=== PATIENT | female | born 1940 | race Caucasian/White ===

== ENCOUNTER → 2023-11-21 11:49 | Outpatient (REF) | payer OTHER, SELFPAY | LOC: HWRAD 11:49 | PROVIDERS: ATTENDING PHYSICIAN Nurse Practitioner Family; FAMILY PHYSICIAN Internal Medicine | DX: R05.9 Cough, unspecified (principal); R06.02 Shortness of breath | CPT/HCPCS: 71046 ==

== ENCOUNTER 2023-12-25 17:49 | Inpatient (IN) | payer OTHER, SELFPAY ==
[2023-12-25] VITALS (13 sets, daily range): BP systolic 131–225; BP diastolic 57–132; BMI 27.1; BMI 27.9
[2023-12-25] MEDS: DUONEB 9 ML INH (15:37)
[2023-12-25 15:40] LABS: % Basophils 1.2 % (0-2); % Eosinophils 12.2 % (0-6); % Immature Granulocytes 1.4 % (0-0.5); % Lymphocytes 17.8 % (20.5-51.1); % Monocytes 6.6 % (1.7-9.3); % Neutrophils 60.8 % (42.2-75.2); Absolute Basophils 0.1 10^3/uL (0-0.2); Absolute Eosinophils 1.4 10^3/uL (0-0.7); Absolute Immature Granulocytes 0.2 10^3/uL (0-0.05); Absolute Lymphocytes 2.1 10^3/uL (1.2-3.4); Absolute Monocytes 0.8 10^3/uL (0.1-0.6); Absolute Neutrophils 7.1 10^3/uL (1.4-6.5); Hematocrit 36.2 % (37.0-47.0); Hemoglobin 12.8 g/dL (12.0-16.0); Mean Corp Hgb Conc. 35.4 g/dL (33.0-37.0); Mean Corpuscular Hgb 32.7 pg (27.0-31.0); Mean Corpuscular Volume 92.3 fL (81.0-99.0); Mean Platelet Volume 9.3 fL (7.4-10.4); Nucleated Red Blood Cells % 0 %; Platelet Count 314 10^3/uL (130-400); Red Blood Cell Count 3.92 10^6/uL (4.20-5.40); Red Cell Dist. Width 13.1 % (11.5-14.5); White Blood Cell Count 11.7 10^3/uL (4.8-10.8)
[2023-12-25] MEDS: SOLU-MEDROL PF 125 MG IV (15:41)
[2023-12-25 15:55] LABS: ALT (SGPT) 14 U/L (0-35); AST (SGOT) 26 U/L (14-36); Albumin 4.4 g/dl (3.5-5.0); Alkaline Phosphatase 68 U/L (38-126); Blood Urea Nitrogen 14 mg/dl (7-17); Calcium 9.6 mg/dl (8.4-10.2); Carbon Dioxide 29 mmol/L (22-30); Chloride 98 mmol/L (98-107); Estimated Creatinine Clearance 51 ml/min; Glucose 120 mg/dl (70-99); Potassium 4.2 mmol/L (3.5-5.1); Sodium 135 mmol/L (135-145); Total Protein 7.2 g/dl (6.3-8.2); eGFR > 60.00
[2023-12-25 16:01] LABS: Troponin I < 0.012 ng/ml
--- NOTE | 2023-12-25 16:03 | ED.GENMED ---
History of Present Illness
General
Chief Complaint: Breathing Problem
Time Seen by Provider: 12/25/23 15:33
History of Present Illness
History of Present Illness:
83-year-old female with history of COPD and hypertension presenting to the emergency department for difficulty breathing. Patient reports symptoms started yesterday. However, patient notes ongoing symptoms for the past several months. She notes
in May she was treated for pneumonia, had improvement. However, again had an infection in August. She recently finished a course of steroids a few weeks ago. She denies cough or fever. She is not on any home O2. She denies any associated
chest pain. She denies any known sick contacts. She denies abdominal pain or GI symptoms. She denies any history of intubations. She denies additional acute medical complaints
Phy Exam
Physical Exam
Physical Exam:
General: Acute respiratory
HEENT: protecting airway
Neck: appears supple
CV: Tachycardic
Resp: Increased work of breathing, tachypneic, diffuse wheezing bilaterally
Abd: Soft and non-distended, no tenderness to palpation, normal bowel sounds
Extremities: No deformities, no swelling, no erythema, pulses and sensation intact
Neuro: alert, no focal neurologic deficit
: deferred
Rectal: deferred
Psych: Normal affect
Skin: Intact
Scores
Heart Failure Risk
Heart Failure Risk Score: Not Applicable
Course
Orders/Labs/Results
Orders:
Orders
12/25/23 Dinner
Regular
At Your Request: Full Participation
12/25/23 15:14
Electrocardiogram (*1) Urgent
Reason for Study: Shortness of Breath
EKG- Treatment ONCE
12/25/23 15:21
Portable Chest Xray [CR Chest Portable - 1 View] Urgent
Comment:
Reason For Exam: sob
Reason Study Needs to be Portable: Unable to Transport
12/25/23 15:30
Complete Blood Count/With Diff Urgent
Comprehensive Metabolic Panel Urgent
Troponin I Urgent
12/25/23 15:33
Ipratropium/Albuterol Sulfate [Duoneb] 9 ml INH R NOW STA
MethylPREDNISolone PF [Solu-Medrol Pf] 125 mg IV NOW STA
12/25/23 15:35
Bipap [RESP] Urgent
Patient to use own unit?: No
Inspiratory Pressure (cm H2O): 10
Expiratory Pressure (cm H2O): 5
12/25/23 15:45
COVID-19 Antigen Urgent
Source: Nasal Swab
Influenza A+B Rapid Molecular Urgent
KALI Source: Nasal Swab
Specimen Description:
12/25/23 17:19
Admit/Transfer Patient As Directed
Co-Sign Provider:
Level of Care: Inpatient admission
Assign to:: IMU- Intermediate Care
Physician / Group: jeovanny
Diagnosis: copd exacerbation
Reason for Hospitalization: copd exacerbation
Expected length of stay greater than two midnights?: Yes
ELOS- Estimated Length of Stay in days: 2
I certify the patient meets the requirements for IP care: Yes
12/25/23 17:20
Code Status As Directed
Resuscitation Status: Full Code
12/25/23 18:46
Ipratropium/Albuterol Sulfate [Duoneb] 3 ml INH R Q4HPRN PRN
12/25/23 18:46
Activity As Directed
Activity Level: As Tolerated
Intake/ Output As Directed
Frequency: Per unit guidelines
Vital Signs As Directed
Frequency: Per unit guidelines
Copd Education [RESP] Routine
DX Deep Vein Thrombosis Video Routine
12/25/23 20:00
Heparin 5,000 units SC Q12
Ipratropium/Albuterol Sulfate [Duoneb] 3 ml INH R QID
12/25/23 22:00
Dexamethasone Sod Phosphate [Decadron] 4 mg IV Q8H
12/26/23 04:50
Basic Metabolic Panel IN AM
Complete Blood Count/With Diff IN AM
12/26/23 08:00
Ascorbic Acid [Vitamin C] 500 mg PO DAILY
Aspirin Low Dose EC [Aspir Low (Enteric Coated)] 81 mg PO DAILY
Atorvastatin [Lipitor] 10 mg PO DAILY
Calcium Carbonate [Oscal Cyrus 500] 500 mg PO DAILY
Cholecalciferol (Vitamin D3) [VITAMIN D3 (cholecalciferol)] 50 mcg PO DAILY
Losartan [Cozaar] 100 mg PO DAILY
Abnormal Lab Results
12/25/23
15:30
WBC 11.7 H 10^3/uL
(4.8-10.8)
RBC 3.92 L 10^6/uL
(4.20-5.40)
Hct 36.2 L %
(37.0-47.0)
MCH 32.7 H pg
(27.0-31.0)
Abs Immat Gran (auto) 0.2 H 10^3/uL
(0-0.05)
Absolute Neuts (auto) 7.1 H 10^3/uL
(1.4-6.5)
Absolute Monos (auto) 0.8 H 10^3/uL
(0.1-0.6)
Absolute Eos (auto) 1.4 H 10^3/uL
(0-0.7)
Immature Gran % 1.4 H %
(0-0.5)
Lymphocytes % 17.8 L %
(20.5-51.1)
Eosinophils % 12.2 H %
(0-6)
Glucose 120 H mg/dl
(70-99)
Total Bilirubin 2.0 H mg/dl
(0.2-1.3)
12/25/23 15:30
12/25/23 15:30
Vital Signs
Initial and Last Documented VS:
Initial Vital Signs
Pulse Resp BP Pulse Ox
113 19 211/109 99
12/25/23 15:12 12/25/23 15:12 12/25/23 15:12 12/25/23 15:12
Last Documented Vital Signs
Temp Pulse Resp BP Pulse Ox
97.6 F 109 22 171/88 92
12/28/23 19:41 12/28/23 20:20 12/28/23 19:41 12/28/23 20:20 12/28/23 19:41
MDM/Problems Addressed
MDM/Problems Addressed:
83-year-old female with history of COPD and hypertension presenting for shortness of breath. Vital signs on arrival significant for tachycardia, tachypnea, hypoxia.
On exam, patient in respiratory distress, increased work of breathing, diffuse wheezing. Symptoms appear most consistent with acute COPD exacerbation. Lower suspicion for pneumonia, denies cough or fever. EKG obtained, nonischemic, and patient
without chest pain, with lower suspicion for ACS. PE is a consideration, however again less suspicious given pulmonary examination. Given a work of breathing, respiratory called for BiPAP. Will start DuoNebs and Solu-Medrol.
16:00- Patient did not tolerate BiPAP, very anxious, tore mask off. Patient notes she does not want to be intubated. Understands risks of not being on the BiPAP. Will proceed with nonrebreather.
16:30 - Chest x-ray without acute cardiopulmonary disease. Labs show mild leukocytosis. Patient appears slightly more comfortable on nonrebreather. Plan for admission for acute COPD exacerbation, for continued treatments and respiratory
monitoring.
*EKG
Interpreted by ED Provider?: Yes
EKG Intrepretation Date: 12/25/23
EKG Intrepretation Time: 16:05
Interpretation: normal
Comparison EKG: no comparison EKG present
Heart Rate: 109
Rate: tachycardiac
Rhythm: sinus
[place]: normal axis
Interval: normal interval
QRS Pattern: normal QRS
Ischemia: non-specific ST changes
*Critical Care Note
Total Time (30-74mins, 75-104mins- exclusive of procedures): Not Applicable
ED Attending Note
-
Portions of this chart may have been created with voice recognition software.� Occasional wrong word or��sound alike� substitutions may have occurred due to the inherent limitations of voice recognition software.
Discharge Plan
Departure
Patient Disposition: Admit
Date of Disposition: 12/25/23
Time of Disposition: 16:51
Presentation/result/management discussed w/ accepting MD/DO: Hospitalist
Patient with high blood pressure during this ER visit?: Yes
Condition: Fair
Discharge Problem:
Exacerbation of reactive airway disease, Respiratory difficulty
Interventions
Interventions:
*Risk Screen - Suicide Last Done: 12/25/23 19:57
*General Assessment Last Done: 12/25/23 15:24
*Neglect/Abuse Screening Last Done: 12/25/23 15:24
ED- Fall Risk Assessment Last Done: 12/25/23 18:52
*ED COVID-19 Vaccine History Last Done: 12/25/23 19:57
*Nursing Disposition Last Done: 12/25/23 18:52
ED- Cardiac Assessment Last Done: 12/25/23 15:25
ED- Pulmonary Assessment Last Done: 12/25/23 15:25
Discharge Date and Time
Discharge Date/Time: 12/25/23 18:53
[2023-12-25 16:12] LABS: COVID-19 Antigen Negative (Negative)
--- NOTE | 2023-12-25 17:23 | HPS.HSE ---
Family Physician
-
Family Physician: Aurelia Miramontes
Chief Complaint
-
shortness of breath
History of Present Illness
83-year-old female past medical history of hypertension, hypercholesterolemia presenting for difficulty breathing which started yesterday. Shortness of breath is constant even without exertion. No cough. No fever. No chest pain or tightness. In
May she was treated for pneumonia as well as in August. Patient has had multiple flareups like this to respond to steroids but returned after completion of steroids. thinks that flareups have been more significant since patient
received a flu vaccine last month. Patient does follow with pulmonology here and reportedly did have PFT testing which was unremarkable.
Patient smoked 1 pack of cigarettes for 10 years but she quit several decades ago. No alcohol use.
She denies any abdominal pain or nausea vomiting or diarrhea.
Medical History
Past Medical History
Past Medical History: Reports Other ( hypertension, hypercholesterolemia)
Past Surgical History: Reports None
Social History
Tobacco: Former Smoker
Alcohol: None
Drug: None
Family History
Family History: Not pertinent
Allergies / Home Medications
Allergies reflects when Allergies were last updated in [facility].
Home Medications with original date entered in [facility]
Allergy/Medication List:
Allergies
Allergy/AdvReac Type Severity Reaction Status Date / Time
No Known Allergies Allergy Unverified 12/25/23 15:13
Home Medications
albuterol sulfate 2.5 mg/3 mL (0.083 %) solution for nebulization 2.5 mg inhalation R Q6HPRN PRN sob 12/25/23
albuterol sulfate 90 mcg/actuation aerosol inhaler 2 puff inhalation R Q6HPRN PRN sob 12/25/23
ascorbic acid (vitamin C) 500 mg tablet (Vitamin C) 500 mg PO DAILY 12/25/23
aspirin 81 mg tablet,delayed release 81 mg PO DAILY 12/25/23
atorvastatin 10 mg tablet 10 mg PO DAILY 12/25/23
calcium carbonate (Calcium 600) 600 mg PO DAILY 12/25/23
cholecalciferol (vitamin D3) 50 mcg (2,000 unit) tablet (Vitamin D3) 50 mcg PO DAILY 12/25/23
losartan 100 mg tablet 100 mg PO DAILY 12/25/23
Review of Systems
-
History Source: Patient
A 12 point ROS was completed and negative except as noted: Yes
Constitutional: Reports No Symptoms
EENT: Reports No Symptoms
Respiratory: Reports See HPI
Cardiac: Reports No Symptoms
Abdomen/GI: Reports No Symptoms
: Reports No Symptoms
Musculoskeletal: Reports No Symptoms
Skin: Reports No Symptoms
Neurological: Reports No Symptoms
Endocrine: Reports No Symptoms
Hematologic/Lymphatic: Reports No Symptoms
Psych: Reports No Symptoms
Physical Exam
Vital Signs
Vital Signs
Temp Pulse Resp BP Pulse Ox
98.1 F 107 25 147/66 96
12/25/23 15:22 12/25/23 17:01 12/25/23 17:01 12/25/23 17:01 12/25/23 17:01
Physical Exam
General: Well Developed, Well Nourished and No Apparent Distress
HEENT: NormoCephalic, Moist mucous membranes and Atraumatic
Respiratory: Wheezes
Cardiac: S1/S2 and Regular Rhythm; No Murmur or Rub
GI: Soft, Non Tender, Non Distended and Normal Bowel Sounds; No Organomegaly
Rectal: Deferred by Provider
Musculoskeletal: No Clubbing, No Cyanosis and No Edema
Skin: No Rash
Neuro: Nonfocal/grossly intact
Laboratory Results
-
12/25/23 15:30
12/25/23 15:30
Laboratory Results
Total Bilirubin 2.0 mg/dl (0.2-1.3) H 12/25/23 15:30
AST 26 U/L (14-36) 12/25/23 15:30
ALT 14 U/L (0-35) 12/25/23 15:30
Alkaline Phosphatase 68 U/L (38-126) 12/25/23 15:30
Troponin I < 0.012 ng/ml 12/25/23 15:30
Data Reviewed
-
Lab Data: Labs Reviewed by me
Old Records: Reviewed
Impression/Plan
-
IMPRESSION:
PLAN:
# Recurrent asthma/COPD exacerbation
-Bilateral wheezing on examination
-Chest x-ray shows no acute abnormality
-DuoNebs every 6 hours
-Dexamethasone 4 mg every 8
-Patient refused BiPAP
-Likely needs long-acting inhaler
-Pulmonary consulted
# Hypertensive urgency
#Essential hypertension
-Blood pressure spontaneously improved
-Continue losartan
-Continue prophylactic aspirin
Hyperlipidemia
-Continue statin
Former smoker
Full code
DVT prophylaxis�heparin
Regular diet
--- NOTE | 2023-12-25 18:59 | PTCARENOTE ---
Received pt from ED RN. Scooted onto stretcher. Placed on monitor equipment. Pt visibly dyspneic at rest and tachypneic but reports feeling much improved. Sating mid 90's on 6L NC. at bedside. Report to receiving RN.
[2023-12-25] MEDS: HEPARIN 5000 UNITS SC (20:12)
--- NOTE | 2023-12-25 20:30 | PTCARENOTE ---
Received pt from [facility]asia RN. Pt is AAOx2 (time), JACKSON, forgetful. Sinus tach/NSR on the monitor. On 6L NC O2 sat 95%, lungs coarse/rhonchi, tachypneic. Stress incont/BSCx1. Mouth care provided. Pt is laying comfortable in bed with call cabrera in reach.
[2023-12-25] MEDS: DECADRON 4 MG IV (21:44)
[2023-12-25] MEDS: XOPENEX 1.25 MG INHALANT SOLUTION INH (23:15)
[2023-12-26] VITALS (12 sets, daily range): BP systolic 140–184; BP diastolic 57–112
--- NOTE | 2023-12-26 00:11 | PTCARENOTE ---
GOMEZ Barber notified about pt BP 184/96, no new orders.
[2023-12-26] MEDS: XOPENEX 1.25 MG INHALANT SOLUTION INH ×4 (03:38→18:06)
[2023-12-26] MEDS: DECADRON 4 MG IV ×3 (05:00→22:00)
[2023-12-26 05:18] LABS: % Basophils 0.1 % (0-2); % Immature Granulocytes 0.7 % (0-0.5); % Lymphocytes 18.8 % (20.5-51.1); % Monocytes 1.2 % (1.7-9.3); % Neutrophils 79.2 % (42.2-75.2); Absolute Immature Granulocytes 0.1 10^3/uL (0-0.05); Absolute Lymphocytes 1.4 10^3/uL (1.2-3.4); Absolute Monocytes 0.1 10^3/uL (0.1-0.6); Absolute Neutrophils 5.8 10^3/uL (1.4-6.5); Hematocrit 36.6 % (37.0-47.0); Hemoglobin 12.4 g/dL (12.0-16.0); Mean Corp Hgb Conc. 33.9 g/dL (33.0-37.0); Mean Corpuscular Hgb 30.5 pg (27.0-31.0); Mean Corpuscular Volume 89.9 fL (81.0-99.0); Mean Platelet Volume 9.2 fL (7.4-10.4); Nucleated Red Blood Cells % 0 %; Platelet Count 324 10^3/uL (130-400); Red Blood Cell Count 4.07 10^6/uL (4.20-5.40); Red Cell Dist. Width 13.1 % (11.5-14.5); White Blood Cell Count 7.4 10^3/uL (4.8-10.8)
[2023-12-26 05:43] LABS: Blood Urea Nitrogen 19 mg/dl (7-17); Calcium 9.7 mg/dl (8.4-10.2); Carbon Dioxide 23 mmol/L (22-30); Chloride 100 mmol/L (98-107); Estimated Creatinine Clearance 57 ml/min; Glucose 159 mg/dl (70-99); Potassium 4.4 mmol/L (3.5-5.1); Sodium 136 mmol/L (135-145); eGFR > 60.00
--- NOTE | 2023-12-26 06:56 | RESPNOTE ---
12/25/23 15:[address] patient on BIPAP settings as ordered. Patient pulled off mask after two minutes and stated she couldn't breathe and refused to wear despite coaching. RN aware, present in room.
[2023-12-26] MEDS: ASPIR LOW (ENTERIC COATED) 81 MG PO (08:06)
[2023-12-26] MEDS: HEPARIN 5000 UNITS SC ×3 (08:06→23:22)
[2023-12-26] MEDS: OSCAL CAL 500 500 MG PO (08:06)
[2023-12-26] MEDS: VITAMIN D3 (cholecalciferol) 50 MCG PO (08:06)
[2023-12-26] MEDS: VITAMIN C 500 MG PO (08:06)
[2023-12-26] MEDS: LIPITOR 10 MG PO (08:06)
[2023-12-26] MEDS: COZAAR 100 MG PO (08:06)
--- NOTE | 2023-12-26 09:30 | CON.PUL ---
Addendum entered and electronically signed by Clement Noriega MD 12/26/23 12:37:
Additional history obtained from as patient is not a good historian. 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 Patient
family as well as [place] 3 times since May with multiple courses of antibiotics and steroids. Patient has noted to be hypoxic in the outpatient setting, 84% after being seen by pulmonary 12/24, sent to ED at that time.
Rev with at length by phone
Original Note:
Consultation
Consultation Request
Date/Time Consultation Requested: 12/25
Date/Time Consultation Performed: 12/25
Reason for Consultation: Shortness of breath
Medical History
-
History of Present Illness:
History obtained from the patient and reviewing the chart. Unfortunate, patient is not a very good historian. She has no recollection or memory of prior medical details. Historical details primary obtained from ER records. 83-year-old female
with history of COPD, presents with increasing shortness of breath which appears to be subacute to chronic over the past few months. Patient cannot recall last time she saw a physician. Patient apparently has a history of pneumonia treated in
May 2023 and in August 2023. She appears to have been on and off steroids over the past few months, but patient cannot confirm this. She admits to short of breath with steps, does not have oxygen therapy at home. Denies any falls, syncope,
fevers, hemoptysis, weight changes. Upon arrival to [facility], pulse 113, breathing at 19, blood pressure 211/109, 99%. Per ED records, patient with diffuse wheezing and increased work of breathing. Chest x-ray without acute findings.
Patient was given nebulized therapy and steroids. It was unable to tolerate BiPAP in the ED. Placed on nonrebreather admitted for COPD exacerbation. We are asked to help from pulmonary standpoint
.
PMH: History of COPD, hypertension, hyperlipidemia. Patient not a good historian
Past Medical History
Past Medical History: None (See above)
Past Surgical History: None (See above)
Social History
Tobacco: Former Smoker (60+ pack year, quit 2021, started age 17. Patient cannot recall, she used to smoke a day)
Alcohol: None
Drug: None
Personal:
Living: With Family (Lives with , has a dog)
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
Family History
Family History: Other (Children are healthy. Family history negative for blood clots, lung cancer)
Allergies / Home Medications
Allergies
Allergy/AdvReac Type Severity Reaction Status Date / Time
No Known Allergies Allergy Unverified 12/25/23 15:13
Home Medications
�Medication �Instructions �Recorded �Confirmed �Last Taken �Type
albuterol sulfate 2.5 mg/3 mL 2.5 mg inhalation R Q6HPRN PRN sob 12/25/23 12/25/23 12/25/23 History
(0.083 %) solution for nebulization
albuterol sulfate 90 mcg/actuation 2 puff inhalation R Q6HPRN PRN sob 12/25/23 12/25/23 Unknown History
aerosol inhaler
ascorbic acid (vitamin C) 500 mg 500 mg PO DAILY 12/25/23 12/25/23 12/24/23 History
tablet (Vitamin C)
aspirin 81 mg tablet,delayed 81 mg PO DAILY 12/25/23 12/25/23 12/24/23 History
release
atorvastatin 10 mg tablet 10 mg PO DAILY 12/25/23 12/25/23 12/24/23 History
calcium carbonate (Calcium 600) 600 mg PO DAILY 12/25/23 12/25/23 12/24/23 History
cholecalciferol (vitamin D3) 50 50 mcg PO DAILY 12/25/23 12/25/23 12/24/23 History
mcg (2,000 unit) tablet (Vitamin
D3)
losartan 100 mg tablet 100 mg PO DAILY 12/25/23 12/25/23 12/24/23 History
Review of Systems
-
All other systems: Negative unless noted
Vitals / Labs / Diagnostic Testing
Vital Signs
Temp Pulse Resp BP Pulse Ox
97.9 F 97 20 165/95 91
12/26/23 07:44 12/26/23 07:44 12/26/23 07:44 12/26/23 07:44 12/26/23 08:35
Lab Data
12/26/23 04:50
12/26/23 04:50
Microbiology
12/25/23 15:45 Nasal Swab Influenza Types A & B (CARITO) - Final
Negative for Influenza A & B, NAAT
Negative results must be combined with clinical observations
and patient history.
Nucleic Acid Amplification test (NAAT)performed on the
[employer] platform.
Diagnostic Testing:
Physical Exam
-
HEENT: Normocephalic and Anicteric
Cardiovascular: S1/S2, Irregular Rhythm, Murmur (n), Rub (n) and Peripheral Edema (tr)
Respiratory: Wheeze (Diffuse), Rales (n), Rhonchi (n) and Non-Labored Respirations
GI: Soft, Non Distended and Non Tender
Neurology: Awake, Alert, Oriented and No Motor Deficits (Able to sit up without assistance)
Skin: Good Color and Other (No clubbing, no cyanosis)
General: Comfortable
Assessment
-
63-year-old female with history of COPD, possible asthma, smoking history with recurrent flareups of COPD/asthma over the past 6 months requiring antibiotics/steroids, now presents with acute COPD exacerbation with diffuse wheezing and hypertensive
urgency. We are asked to help from pulmonary standpoint. Of note patient is an extremely poor historian
Acute COPD exacerbation
Hypertensive urgency
Hyperglycemia
Questionable right lower lobe/right middle lobe infiltrate (my review)
Conditions present prior to admission
History of hypertension
Hyperlipidemia
60+ pack-year history of smoking quit 2021
Plan/recommendations
At this time, patient appears to be comfortable without use of accessory muscles
Unfortunate, she is a poor historian
ED records suggest diffuse wheezing, requiring nonrebreather, failed BiPAP
ED records also suggest significant work of breathing, use of accessory muscles.
Presently she is comfortable, conversant
Moving forward
Continue with management for suspected COPD exacerbation
Patient likely with history of COPD given smoking history
There may be a mild right lower lobe, right middle lobe infiltrate although I cannot confirm this
Will add doxycycline with COPD exacerbation
Continue nebulized therapy. Add ipratropium
Hypertensive urgency noted
Continue with management per primary service. Blood pressure improved at this time
She will need monitoring of oxygen requirements as she may require home oxygen
Patient states it is likely been more than 10 years since she saw a physician
DVT prophylaxis: Remains on subcutaneous heparin. Increased to every 8 hours
GI prophylaxis: Will add while on steroids
Will follow
--- NOTE | 2023-12-26 10:20 | CM ---
Patient seen at bedside with physician. Patient states that she lives with . Patient does not have PCP at this time, states it has been years since she had seen one. Patient also states that she does not have a pulmonary physician. Patient is
new to . CM will return to complete assessment as Pulmonary Doctor here to assess patient. CM will continue to follow for discharge planning needs.
Plan; home with family watch for VN vs SNF
[2023-12-26] MEDS: ATROVENT NEBULES 0.5 MG INH ×3 (11:04→18:06)
[2023-12-26] MEDS: APRESOLINE 5 MG PO ×2 (12:56→20:33)
[2023-12-26] MEDS: ZITHROMAX 250 MG PO (12:58)
--- NOTE | 2023-12-26 15:48 | W.PN.HOSP.TC ---
Addendum entered and electronically signed by Mandi Mora MD 12/26/23 18:11:
I saw and evaluated the patient independently. I reviewed the resident�s note and agree with findings and plan as documented by Dr. Shi.
GENERAL: well developed, well nourished, female in no apparent distress
HEENT: NC/AT-- O2 NC in place
HEART: regular rate and rhythm, +S1, +S2
LUNGS :coarse rhonchi with wheezing bilaterally all lung michel
ABDOM: soft, nontender, nondistended, + bowel sounds
EXT: no cyanosis, clubbing, or edema
NEUROLOGIC: grossly intact
Recurrent asthma/COPD exacerbation--cont nebs/steroids--apprec pulm--would start zithomax --follow EKG for QTc monitoring--agree with consideration of advair, symbicort etc
Essential hypertension--Continue losartan--Continue prophylactic aspirin
Hyperlipidemia--Continue statin
Sinus tachycardia--possibly due to duonebs and SOB
DVT prophylaxis: Remains on subcutaneous heparin. Increased to every 8 hours
Code status --Full code
Original Note:
Today's Communication/Plan
-
Continue with management for suspected COPD exacerbation. Continue nebulized therapy and add ipratropium. Continue to monitor oxygen requirements because the patient will possibly need home oxygen.
Assessment / Plan
Assessment / Plan
- Recurrent asthma/COPD exacerbation: Monitoring - Unresolved
DuoNebs every 6 hours
Dexamethasone 4 mg every 8 hours
Patient would benefit from BiPAP but unfortunately refused
Patient will benefit from a long-acting inhaler
Pulmonology consult - Pulmonology consult suspected COPD given the history of smoking. They suggested adding doxycycline due to COPD exacerbation. They recommended that nebulizer to be continued and add ipratropium. They also stated that she
will need monitoring of oxygen requirements as there is a possibility she may require home oxygen. Pulmonology will continue to follow.
- Essential hypertension
Continue losartan
Continue prophylactic aspirin
- Hyperlipidemia
Continue statin
-Sinus tachycardia: Monitoring
Pulse is consistently elevated above 100
Twelve-lead electrocardiogram showed sinus tachycardia, right atrial enlargement, inferior infarct with undetermined age.
DVT prophylaxis: Remains on subcutaneous heparin. Increased to every 8 hours
Full code
Regular diet
Anticipated Discharge: > 48 hours
Subjective/Interval History
-
Date of Service: December 26, 2023
Met with patient at the bedside. Overall, she is in a calm and pleasant mood but seems forgetful of past events. When asked if she is ever seen a zookeeper or 'lung doctor' the patient was unable to confirm if she is ever seen a zookeeper.
She states that she smoked for many years but then stopped and her breathing has been fine for the most part. Prior records shows multiple hospital admissions for hypoxia and similar circumstances. Patient does not recall any of this. Patient
unaware of her obstructive sleep apnea and did not know what COPD was.
Objective Data
-
Labs:
Laboratory Results
12/26/23
04:50
WBC 7.4
Hgb 12.4
Hct 36.6 L
Plt Count 324
Sodium 136
Potassium 4.4
Chloride 100
Carbon Dioxide 23
BUN 19 H
Creatinine 0.8
Glucose 159 H
Calcium 9.7
Vital Signs:
Vital Signs
Temp Pulse Resp BP Pulse Ox
97.8 F 110 23 147/57 95
12/26/23 12:28 12/26/23 15:15 12/26/23 15:15 12/26/23 14:00 12/26/23 15:15
I&O
12/25/23 12/26/23 12/27/23
06:59 06:59 06:59
Intake Total 200 / 200
Balance 200 / 200
Review of Systems
-
History Source: Patient
Constitutional: Reports No Symptoms
EENT: Reports No Symptoms Reported
Respiratory: Reports Cough, Trouble Breathing and Wheezing
Cardiac: Reports No Symptoms
Abdomen/GI: Reports No Symptoms
Breast: Reports No Symptoms
Genitourinary: Reports No Symptoms
Musculoskeletal: Reports No Symptoms
Skin: Reports No Symptoms
Neuro: Reports No Symptoms
Endocrine: Reports No Symptoms
Hematologic / Lymphatic: Reports No Symptoms
Allergy / Immunology: Reports No Symptoms
Physical Exam
-
General: Well Developed
HEENT: Normocephalic, Atraumatic and Moist Mucous Membranes
Respiratory: Wheezes, Rales, Rhonchi and Non Labored Respirations
Cardiac: S1/S2, Irregular Rhythm and Murmur
Breast: Deferred by me
GI: Soft, Nontender, Nondistended and Normal Bowel Sounds
Rectal: Deferred by Provider
Genito-urinary: Deferred by me
Musculoskeletal: No Clubbing and No Cyanosis
Skin: Warm and Dry
Neuro: Nonfocal/Grossly Intact
Psych: Calm
--- NOTE | 2023-12-26 18:05 | PTCARENOTE ---
Received pt from IMU. Report from Carmen RODRIGUEZ. Pt awake, alert and oriented x2, very forgetful,poor historian. Pt assisted from wheelchair to bed, visibly short of breath with activity, pulse ox 93% on 3L. Respiratory into give treatment, work of
breathing much improved after nebulizer, pt appears more comfortable pulse ox 94-95% on 3L. Pt Sinus Tach on tele. Bp slightly elevated, PRN meds due within the hour, will pass onto oncoming shift. Pt oriented to room, call cabrera within reach, HOB
elevated, family at bedside, bed alarm in place for safety, plan of care continues.
--- NOTE | 2023-12-26 18:20 | PTCARENOTE ---
PT for downgrade to tele. Belongings collected from room. Transferred to [facility] via wheelchair.
[2023-12-26] MEDS: PEPCID 20 MG PO (20:32)
[2023-12-27] VITALS (8 sets, daily range): BP systolic 151–175; BP diastolic 80–117
--- NOTE | 2023-12-27 02:58 | DOWNTIME ---
There was a [employer] Client Member Service Representative Downtime on 12/27/2023 from 0100 to 12/27/2023 at 0255. Downtime documentation of patient's care, including medication administrations, has been reconciled in the electronic record per guidelines. Refer to the
patient's paper chart under the miscellaneous tab to see printed paper medication records and downtime forms.
[2023-12-27] MEDS: APRESOLINE 5 MG PO ×2 (03:53→16:16)
[2023-12-27] MEDS: DECADRON 4 MG IV ×3 (05:41→21:12)
[2023-12-27 07:27] LABS: Hematocrit 34.8 % (37.0-47.0); Hemoglobin 11.9 g/dL (12.0-16.0); Mean Corp Hgb Conc. 34.2 g/dL (33.0-37.0); Mean Corpuscular Hgb 31.2 pg (27.0-31.0); Mean Corpuscular Volume 91.3 fL (81.0-99.0); Mean Platelet Volume 9.7 fL (7.4-10.4); Platelet Count 361 10^3/uL (130-400); Red Blood Cell Count 3.81 10^6/uL (4.20-5.40); Red Cell Dist. Width 13.2 % (11.5-14.5); White Blood Cell Count 16.9 10^3/uL (4.8-10.8)
[2023-12-27 07:34] LABS: ALT (SGPT) 15 U/L (0-35); AST (SGOT) 25 U/L (14-36); Alkaline Phosphatase 62 U/L (38-126); Blood Urea Nitrogen 31 mg/dl (7-17); Calcium 9.8 mg/dl (8.4-10.2); Carbon Dioxide 26 mmol/L (22-30); Chloride 99 mmol/L (98-107); Estimated Creatinine Clearance 46 ml/min; Glucose 121 mg/dl (70-99); Potassium 4.3 mmol/L (3.5-5.1); Sodium 135 mmol/L (135-145); Total Bilirubin 0.9 mg/dl (0.2-1.3); eGFR 56.25
[2023-12-27] MEDS: XOPENEX 1.25 MG INHALANT SOLUTION INH ×3 (08:11→19:26)
[2023-12-27] MEDS: ATROVENT NEBULES 0.5 MG INH ×4 (08:11→19:26)
[2023-12-27] MEDS: HEPARIN 5000 UNITS SC ×2 (08:26→16:06)
[2023-12-27] MEDS: COZAAR 100 MG PO (08:27)
[2023-12-27] MEDS: ASPIR LOW (ENTERIC COATED) 81 MG PO (08:27)
[2023-12-27] MEDS: VITAMIN D3 (cholecalciferol) 50 MCG PO (08:27)
[2023-12-27] MEDS: ZITHROMAX 250 MG PO (08:27)
[2023-12-27] MEDS: VITAMIN C 500 MG PO (08:27)
[2023-12-27] MEDS: OSCAL CAL 500 500 MG PO (08:27)
[2023-12-27] MEDS: PEPCID 20 MG PO ×2 (08:27→20:13)
[2023-12-27] MEDS: LIPITOR 10 MG PO (08:27)
--- NOTE | 2023-12-27 08:50 | PTOTSP ---
Speech Language Pathology
VIDEOFLUOROSCOPIC SWALLOWING EXAMINATION (VSE) completed. Overall, pt with mild pharyngeal dysphagia with trace penetration to the level of the vocal folds with consecutive sips of thin liquids via straw, which cleared with a cued cough. No other
penetration/aspiration noted. Only trace base of tongue residue noted throughout study.
Recommend:
(1) Continue regular solids/thin liquids
(2) Aspiration precautions: single sips only
(3) Meds whole with liquid if able to take a single sip. Otherwise, whole in puree
(4) COOLER SERVICER to sign off. Please reconsult as indicated
--- NOTE | 2023-12-27 13:56 | PN.CDI ---
CDI
- -
CDI:
Physician Documentation Request
Admit Date: 12/25/23 17:49
Dear Doctor Yuridia,
Please review the following and provide your response in the progress notes.
Clinical Indicators:
ED, 12/24
#...presenting to the emergency department for difficulty breathing.
#Resp: Increased work of breathing, tachypneic, diffuse wheezing bilaterally
#On exam, patient in respiratory distress, increased work of breathing, diffuse wheezing.
#Given a work of breathing, respiratory called for BiPAP.
#16:00- Patient did not tolerate BiPAP, very anxious, tore mask off.
#...Will proceed with nonrebreather.
Pulmonary consult, 12/25
ED records suggest diffuse wheezing, requiring nonrebreather, failed BiPAP
ED records also suggest significant work of breathing, use of accessory muscles.
Selected Entries
12/25/23
15:22 12/25/23
20:00 12/25/23
20:44
SaO2 100 95 96
Nasal Cannula flow liters per minute 8 6 5
12/25/23
22:42 12/26/23
11:07 12/26/23
12:28
SaO2 96 97 95
Nasal Cannula flow liters per minute 5 6 5
Based on the above, please clarify which of the following accurately represents the patient's respiratory status :
Acute respiratory failure
COPD exacerbation only
Hypoxia
Other(please specify)
Additional information for Respiratory Failure:
Recognized criteria for Respiratory Failure (Source: [facility] Hospitalist Apr 2013)
Symptoms Please indicate type if known
1. Tachypnea, SOB, dyspnea Hypoxic
2. Use of accessory muscles Hypercapnic
3. Pallor or cyanosis Hypoxic and Hypercapnic
4. Anxiety or restlessness
5. Unable to speak in full sentences
Supplemental O2 of > 40% (5LPM) Intubation is not required
Use of terms such as suspected, likely, concern for, or probable (associated with a specific diagnosis that is being evaluated, monitored, or treated as if it exists) are acceptable and can be coded in the inpatient setting, when documented at the
time of discharge.
Thank you,
Mandi Ramos RN BSN CCDS
CDI Specialist
please contact via tiger text
Please use your independent medical judgment in providing your response.
--- NOTE | 2023-12-27 14:10 | PN.CDI ---
CDI
- -
CDI:
Physician Documentation Request
Admit Date: 12/25/23 17:49
Dear Doctor Yuridia,
Please review the following and provide your response in the progress notes.
Clinical Indicators:
Pulmonary consult, 12/25
#There may be a mild right lower lobe, right middle lobe infiltrate
#....although I cannot confirm this
#Will add doxycycline with COPD exacerbation
PN, 12/25
Recurrent asthma/COPD exacerbation--cont nebs/steroids--apprec pulm
#...--would start zithomax --follow EKG for QTc monitoring
#...--agree with consideration of advair, symbicort etc
#Pulmonology consult suspected COPD given the history of smoking.
#...They suggested adding doxycycline due to COPD exacerbation.
Based on the above, please clarify in the progress notes, the appropriate diagnosis, if significant, that supports the above abnormalities and additional evaluation, monitoring and/or treatment rendered:
Acute bronchitis
Pneumonia
Other(please specify)
Use of terms such as suspected, likely, concern for, or probable (associated with a specific diagnosis that is being evaluated, monitored, or treated as if it exists) are acceptable and can be coded in the inpatient setting, when documented at the
time of discharge.
Thank you,
Mandi Ramos RN BSN CCDS
CDI Specialist
please contact via tiger text
Please use your independent medical judgment in providing your response.
--- NOTE | 2023-12-27 14:11 | W.PN.PUL3 ---
Today's Communication / Plan
-
Continue steroids
Check CT chest with high res images in am
change macrolide to doxy
aspiration prec
GERD rx
Assessment
-
63-year-old female with history of COPD, possible asthma, smoking history with recurrent flareups of COPD/asthma over the past 6 months requiring antibiotics/steroids, now presents with acute COPD exacerbation with diffuse wheezing and hypertensive
urgency. We are asked to help from pulmonary standpoint. Of note patient is an extremely poor historian
Acute COPD exacerbation
Hypertensive urgency
Hyperglycemia
Questionable right lower lobe/right middle lobe infiltrate (my review)
Hx of ANCA vasculitis
Treated with Rituxan in the past last dose February 2019
Follows rheumatology
CANCA vasculitis, eosinophils per muscle biopsy for myositis
Conditions present prior to admission
History of hypertension
Hyperlipidemia
60+ pack-year history of smoking quit 2021
Plan/recommendations
At this time, patient appears to be comfortable without use of accessory muscles
Unfortunate, she is a poor historian
ED records suggest diffuse wheezing, requiring nonrebreather, failed BiPAP
ED records also suggest significant work of breathing, use of accessory muscles.
Chest exam appears to be improved
confirmed improvement in respiratory status
Swallowing evaluation confirms risk for aspiration
Moving forward
Patient appears to have a steroid responsive process over the past 6 months
Patient likely with history of COPD given smoking history
However, given history of vasculits, wonder about an interstitial process
There may be a mild right lower lobe, right middle lobe infiltrate although I cannot confirm this
Continue with Zithromax 250 mg a day
Will add doxycycline with COPD exacerbation
Continue nebulized therapy. Continue ipratropium
Hypertensive urgency noted
Continue with management per primary service. Blood pressure improved at this time
Check urinalysis with micro, rule out hematuria
Given history of vasculitis, wonder if there may be an interstitial process.
Patient had outpatient CT chest 10/12/2023 at [place]. Per report, resolution of left upper lobe atelectasis and biapical opacities.
I wonder if there is a steroid responsive interstitial process. She will need closer monitoring both radiographically and clinically and consideration for nonsteroid therapy
DVT prophylaxis: Remains on subcutaneous heparin. Increased to every 8 hours
GI prophylaxis: continue while on steroids
updated at bedside at length
Will follow
Subjective Data
-
Date of Service:
Date of Service: December 27, 2023
Subjective:
Patient difficult historian. at bedside. Patient does appear to be somewhat improved. confirmed this. Patient denies chest pain. Has not been ambulating
Objective Data
Data Reviewed
Vital Signs / I&O / Oxygen:
Vital Signs
Temp Pulse Resp BP Pulse Ox
97.8 F 114 22 158/80 95
12/27/23 11:06 12/27/23 14:00 12/27/23 11:06 12/27/23 14:00 12/27/23 14:01
Intake and Output
12/26/23 12/27/23 12/28/23
06:59 06:59 06:59
Intake Total 200 / 200 240 / 240
Balance 200 / 200 240 / 240
SaO2 95
Nasal Cannula flow liters per 2
minute
Physical Exam
General: Comfortable
HEENT: Normocephalic and Anicteric
Cardiovascular: S1-S2, Regular Rhythm, Murmur (n), Rub (n) and Peripheral Edema (Trace)
Respiratory: Wheeze (Few scattered wheezes), Crackles (n), Rhonchi (n) and Non-Labored Respirations
GI: Soft, Non Distended and Non Tender
Neurology: Awake, Alert and No Motor Deficits
Labs/Micro/Reports
Lab Data
12/27/23 05:46
12/27/23 05:46
Microbiology
12/25/23 15:45 Nasal Swab Influenza Types A & B (CARITO) - Final
Negative for Influenza A & B, NAAT
Negative results must be combined with clinical observations
and patient history.
Nucleic Acid Amplification test (NAAT)performed on the
[employer] platform.
--- NOTE | 2023-12-27 15:54 | CM ---
Patient seen at bedside with . Patient states that the home is 3 story home with no prior VN. Patient PCP Dr. Miramontes and she uses the [facility]. Patient has a walker at home but is primary caregiver and is very much
against SNF placement. CM will continue to follow for discharge planning needs.
Plan; home with VN vs home with no needs.
--- NOTE | 2023-12-27 17:26 | W.PN.HOSP.TC ---
Addendum entered and electronically signed by Mandi Mora MD 12/27/23 18:40:
I saw and evaluated the patient independently. I reviewed the resident�s note and agree with findings and plan as documented by Dr. Shi.
GENERAL: well developed, well nourished, female in no apparent distress
HEENT: NC/AT-- O2 NC in place
HEART: regular rate and rhythm, +S1, +S2
LUNGS :coarse rhonchi with wheezing bilaterally all lung michel, improved overnight
ABDOM: soft, nontender, nondistended, + bowel sounds
EXT: no cyanosis, clubbing, or edema
NEUROLOGIC: grossly intact
acute hypoxemic resp failure due to Recurrent asthma/COPD exacerbation--cont nebs/steroids--apprec pulm-- started zithromax to cover for bronchitis but QTC long so changed to doxy--agree with consideration of advair, symbicort etc
TME vs mild cognitive impairment/dementia--multiple reasons...hypoxia, steroids, ANCA vasculitis--possible UTI--check UA with reflex to C&S--for CT chest (by pulm ) in AM
Essential hypertension--Continue losartan--Continue prophylactic aspirin
Hyperlipidemia--Continue statin
Sinus tachycardia--possibly due to duonebs and SOB
DVT prophylaxis: Remains on subcutaneous heparin. Increased to every 8 hours
Code status --Full code
Original Note:
Today's Communication/Plan
-
Doxycycline added to medication regimen and azithromycin discontinued due to QT prolongation. Amlodipine 5 mg p.o. at nighttime added for hypertension. Hydralazine 5 mg p.o. given every 4 hours as needed added for breakthrough hypertension. We
will try to wean the patient's oxygen nasal cannula down to 2 L if possible.
Assessment / Plan
Assessment / Plan
- Acute COPD exacerbation: Monitoring - Unresolved
DuoNebs every 6 hours
Dexamethasone 4 mg every 8 hours
Patient would benefit from BiPAP but unfortunately refused
Patient will benefit from a long-acting inhaler
Patient tested negative for influenza types a and B
Pulmonology consult - Pulmonology consult suspected COPD given the history of smoking. They recommended that nebulizer to be continued and continue ipratropium. They also stated that she will need monitoring of oxygen requirements as there is a
possibility she may require home oxygen. Patient was switched from azithromycin to doxycycline due to concerns of QT prolongation. They also recommended monitoring both radiographically and clinically as there is consideration for nonsteroid
therapy... COPD exacerbation may be a consequence of a steroid responsive interstitial process.
Barium swallow ordered to rule out possibility of aspiration pneumonia risk. Study conducted showed no fluoroscopic evidence of airway aspiration.
Patient currently on 3 L nasal cannula with an SaO2 of 94
- Essential hypertension: Monitoring - Unresolved
Continue losartan
Continue prophylactic aspirin
Hydralazine 5 mg p.o. every 4 hours as needed added
Amlodipine 5 mg added nightly
- Hyperlipidemia: Stable
Continue statin
-Sinus tachycardia: Monitoring
Pulse is consistently elevated above 100 -is 111 on 12/26
Twelve-lead electrocardiogram showed sinus tachycardia, right atrial enlargement, inferior infarct with undetermined age.
- Hyperglycemia: Monitoring
Patient's glucose level is stable at around 121.
Continue to monitor
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
Treated prior with Rituxan in the past - last dose was given February 2019
Follows with outpatient rheumatology
C-ANCA vasculitis, eosinophils per muscle biopsy for myositis
- Overweight:
Patient's BMI is 27.9 which categorized the patient is overweight.
She has been counseled in regards to improved dietary habits and we will consider dietary consult.
DVT prophylaxis: Remains on subcutaneous heparin. Increased to every 8 hours
Full code
Regular diet
Anticipated Discharge: > 48 hours
Subjective/Interval History
-
Date of Service: December 27, 2023
Met with the patient at the bedside. She states that she is feeling better today and is able to breathe slightly better. She has noticed that when she takes deep breaths she no longer feels a strong need to cough. She is smiling and jovial in
discussion.
Objective Data
-
Labs:
Laboratory Results
12/27/23
05:46
WBC 16.9 H
Hgb 11.9 L
Hct 34.8 L
Plt Count 361
Sodium 135
Potassium 4.3
Chloride 99
Carbon Dioxide 26
BUN 31 H
Creatinine 1.0
Glucose 121 H
Calcium 9.8
Total Bilirubin 0.9 D
AST 25
ALT 15
Alkaline Phosphatase 62
Vital Signs:
Vital Signs
Temp Pulse Resp BP Pulse Ox
97.6 F 111 24 161/91 92
12/27/23 15:41 12/27/23 16:16 12/27/23 15:41 12/27/23 16:16 12/27/23 15:41
I&O
12/26/23 12/27/23 12/28/23
06:59 06:59 06:59
Intake Total 200 / 200 240 / 240
Balance 200 / 200 240 / 240
Review of Systems
-
History Source: Patient
Constitutional: Reports No Symptoms
EENT: Reports No Symptoms Reported
Respiratory: Reports Wheezing
Cardiac: Reports No Symptoms
Abdomen/GI: Reports No Symptoms
Breast: Reports No Symptoms
Genitourinary: Reports No Symptoms
Musculoskeletal: Reports No Symptoms
Skin: Reports No Symptoms
Neuro: Reports No Symptoms
Endocrine: Reports No Symptoms
Hematologic / Lymphatic: Reports No Symptoms
Allergy / Immunology: Reports No Symptoms
Physical Exam
-
General: Well Developed, Well Nourished and No Apparent Distress
HEENT: Normocephalic, Atraumatic and Moist Mucous Membranes
Respiratory: Wheezes, Rales, Crackles and Non Labored Respirations
Cardiac: Regular Rhythm and S1/S2
Breast: Deferred by me
GI: Soft, Nontender, Nondistended and Normal Bowel Sounds
Rectal: Deferred by Provider
Genito-urinary: Deferred by me
Musculoskeletal: No Clubbing and No Cyanosis
Skin: Warm and Dry
Neuro: Nonfocal/Grossly Intact
Psych: Calm
[2023-12-27 19:08] LABS: Urine Albumin Trace (Neg - Trace); Urine Bilirubin Negative (Negative); Urine Character Clear (Clear); Urine Color Yellow; Urine Glucose Negative (Negative); Urine Ketone Negative (Negative); Urine Leukocyte Negative (Negative); Urine Nitrite Negative (Negative); Urine Occult Blood Negative (Negative); Urine Urobilinogen Negative (Neg - 1+)
[2023-12-27] MEDS: VIBRAMYCIN 100 MG PO (20:13)
[2023-12-27] MEDS: NORVASC 5 MG PO (20:13)
--- NOTE | 2023-12-28 00:54 | PTCARENOTE ---
Addendum entered by Eduarda Ibarra RN 12/28/23 04:59:
Pt agitated and combative with staff. Multiple attempts to reorient patient, unsuccessful. SENIOR INVESTMENT ANALYST called up to see patient. Pt still uncooperative. Orders for lab work, IM Zyprexa. Given as ordered. Security and outbound supervisor also called to floor.
Patient still agitated, angry, combative. Pt's called and pt's daughter coming into to sit with patient.
Original Note:
Bed alarm alerted pt was attempting to get OOB. Pt was found without O2 on, tachypneic, and ripping tele monitor leads off. Attempted to reorient patient and get O2 back on, pt began yelling and swinging at staff. Once O2 was back on, pt became more
aware of surroundings - tearful and states she was embarrassed of her behavior. Educated pt on importance of keeping oxygen on, pt states she understands however still disoriented to place (states she was somewhere in [place]). Pt back in bed, plan
of care ongoing.
[2023-12-28] MEDS: HEPARIN 5000 UNITS SC ×3 (01:07→23:19)
[2023-12-28] MEDS: ZYPREXA 5 MG IM (04:29)
--- NOTE | 2023-12-28 04:43 | W.PN.UPDATE ---
Addendum entered and electronically signed by GOMEZ Castillo 12/28/23 05:00:
psych consult in place
Original Note:
Update Note
Progress Note Update
RN notified CLIENT SUCCESS MANAGER, patient is agitated, physically swinging at the staff. Patient seen sitting at the commode, seems agitated and stated 'these girls are making up lies', denies any pain, voiding. Will order restraints for protective intervention, IM
Zyprexa for agitation, stat labs.
[2023-12-28 05:01] LABS: Hematocrit 35.4 % (37.0-47.0); Hemoglobin 12.4 g/dL (12.0-16.0); Mean Corpuscular Volume 88.5 fL (81.0-99.0); Platelet Count 437 10^3/uL (130-400); Red Cell Dist. Width 13.4 % (11.5-14.5)
[2023-12-28 05:26] LABS: ALT (SGPT) 17 U/L (0-35); AST (SGOT) 29 U/L (14-36); Albumin 4.6 g/dl (3.5-5.0); Alkaline Phosphatase 71 U/L (38-126); Blood Urea Nitrogen 37 mg/dl (7-17); Calcium 9.9 mg/dl (8.4-10.2); Carbon Dioxide 24 mmol/L (22-30); Chloride 100 mmol/L (98-107); Estimated Creatinine Clearance 42 ml/min; Glucose 143 mg/dl (70-99); Magnesium 2.5 mg/dl (1.6-2.3); Potassium 4.3 mmol/L (3.5-5.1); Sodium 136 mmol/L (135-145); Total Bilirubin 0.9 mg/dl (0.2-1.3); Total Protein 7.5 g/dl (6.3-8.2); eGFR 50.17
[2023-12-28] MEDS: DECADRON 4 MG IV (05:28)
[2023-12-28] MEDS: XOPENEX 1.25 MG INHALANT SOLUTION INH ×3 (07:31→19:35)
[2023-12-28] MEDS: ATROVENT NEBULES 0.5 MG INH ×4 (07:31→19:35)
[2023-12-28 07:55] VITALS: BP 182/96
--- NOTE | 2023-12-28 07:59 | W.PN.HOSP.TC ---
Addendum entered and electronically signed by Mandi Mora MD 12/28/23 13:31:
I saw and evaluated the patient independently. I reviewed the resident�s note and agree with findings and plan as documented by Dr. Shi.
GENERAL: well developed, well nourished, female in no apparent distress
HEENT: NC/AT-- O2 NC in place
HEART: regular rate and rhythm, +S1, +S2
LUNGS :coarse rhonchi with wheezing bilaterally all lung michel, improving
ABDOM: soft, nontender, nondistended, + bowel sounds
EXT: no cyanosis, clubbing, or edema
NEUROLOGIC: grossly intact
acute hypoxemic resp failure due to Recurrent asthma/COPD exacerbation--cont nebs/steroids--apprec pulm-- started zithromax to cover for bronchitis but QTC long so changed to doxy--agree with consideration of advair, symbicort etc--CT scan chest
reviewed and noted with bronchiectasis
TME vs mild cognitive impairment/dementia--multiple reasons...hypoxia, steroids, memory loss most likely--less likely ANCA vasculitis--possible UTI--UA negative--apprec neuro--no need for imaging
Essential hypertension--Continue losartan--BP elevated (likely worse with agitation)--Continue amlodipine and PRN hydralazine
Hyperlipidemia--Continue statin
Sinus tachycardia--possibly due to duonebs and SOB
DVT prophylaxis: Remains on subcutaneous heparin. Increased to every 8 hours
Code status --Full code
Original Note:
Today's Communication/Plan
-
We will begin to taper her steroids down due to mental confusion. Chest CT conducted on 12/27 showed no lobar pneumonia, bronchiectatic changes noted. Mucus clearing devices, Mucolytics, incentive spirometry, flutter, and vest therapy ordered.
Continue to monitor persistent hypotension and fine-tune medications.
Assessment / Plan
Assessment / Plan
- Acute COPD exacerbation: Monitoring - Unresolved
DuoNebs every 6 hours
Dexamethasone 4 mg every 8 hours
Patient would benefit from BiPAP but unfortunately refused
Patient will benefit from a long-acting inhaler
Patient tested negative for influenza types a and B
Pulmonology consult - Pulmonology consult suspected COPD given the history of smoking. They recommended that nebulizer to be continued and continue ipratropium. They also stated that she will need monitoring of oxygen requirements as there is a
possibility she may require home oxygen. Patient was switched from azithromycin to doxycycline due to concerns of QT prolongation. They also recommended monitoring both radiographically and clinically as there is consideration for nonsteroid
therapy... COPD exacerbation may be a consequence of a steroid responsive interstitial process.
Barium swallow ordered to rule out possibility of aspiration pneumonia risk. Study conducted showed no fluoroscopic evidence of airway aspiration.
Patient currently on 2 L nasal cannula with an SaO2 of 97
Pulmonology recommended tapering down Decadron due to mental confusion. Reportedly the patient has been on high-dose steroids in the past without confusion. CT chest conducted on 12/28/2023 showed no lobar pneumonia, bronchiectatic changes noted.
They recommended mucus clearing devices, maximizing mucolytic's, incentive spirometry, flutter, and vest therapy.
- Essential hypertension: Monitoring - Unresolved
Continue losartan
Continue prophylactic aspirin
Hydralazine 5 mg p.o. every 4 hours as needed added
Amlodipine 5 mg added nightly
Patient's blood pressure was elevated between 150-180 systolic blood pressure overnight possibly due to agitation and confusion. -Will continue to monitor.
- Hyperlipidemia: Stable
Continue statin
- Agitation/Confusion in the Evening: Monitoring
Patient was acutely agitated in the evening of 12/26 and in the morning of 12/27. Possibly secondary to steroid usage vs hospital-acquired delirium.
Neurology consult has been ordered to assess the patient.
Psychiatry consult has been ordered.
-Sinus tachycardia: Monitoring
Pulse is consistently elevated above 100 - is 114 on 12/27
Twelve-lead electrocardiogram showed sinus tachycardia, right atrial enlargement, inferior infarct with undetermined age.
- Hyperglycemia: Monitoring
Patient's glucose level is 143 on 12/27
Continue to monitor
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
Treated prior with Rituxan in the past - last dose was given February 2019
Follows with outpatient rheumatology
C-ANCA vasculitis, eosinophils per muscle biopsy for myositis
- Overweight:
Patient's BMI is 27.9 which categorized the patient is overweight.
She has been counseled in regards to improved dietary habits and we will consider dietary consult.
DVT prophylaxis: Remains on subcutaneous heparin. Increased to every 8 hours
Full code
Regular diet
Anticipated Discharge: 24 - 48 hours
Subjective/Interval History
-
Date of Service: December 28, 2023
Met with patient at the bedside. She had a very difficult evening last night and was agitated. Restraints were ordered for patient's safety overnight. IM Zyprexa was given for agitation. Patient subsequently calm down after her daughter arrived
in the slot shift manager. Patient was calm and pleasant during discussion in the morning and was unaware of the events that happened last night.
Objective Data
-
Labs:
Laboratory Results
12/28/23 12/28/23
04:15 04:41
WBC Cancelled 17.0 H
Hgb Cancelled 12.4
Hct Cancelled 35.4 L
Plt Count Cancelled 437 H D
HCO3 Cancelled
Sodium Cancelled 136
Potassium Cancelled 4.3
Chloride Cancelled 100
Carbon Dioxide Cancelled 24
BUN Cancelled 37 H
Creatinine Cancelled 1.1 H
Glucose Cancelled 143 H
Calcium Cancelled 9.9
Total Bilirubin 0.9
AST 29
ALT 17
Alkaline Phosphatase 71
Vital Signs:
Vital Signs
Temp Pulse Resp BP Pulse Ox
97.4 F 101 20 156/85 95
12/27/23 23:28 12/28/23 07:36 12/28/23 07:36 12/27/23 23:28 12/28/23 07:36
I&O
12/27/23 12/28/23 12/29/23
06:59 06:59 06:59
Intake Total 240 / 240
Output Total 800 / 800
Balance 240 / 240 -800 / -800
--- NOTE | 2023-12-28 09:19 | W.PN.PUL.V3 ---
Today's Communication / Plan
-
Check CT chest
Wean oxygen
Continue nebulizers
Wean Decadron
Mucus clearing devices including vest therapy
Neurology evaluation
Reviewed with daughter
Assessment
-
63-year-old female with history of COPD, possible asthma, smoking history with recurrent flareups of COPD/asthma over the past 6 months requiring antibiotics/steroids, now presents with acute COPD exacerbation with diffuse wheezing and hypertensive
urgency. We are asked to help from pulmonary standpoint. Of note patient is an extremely poor historian
Acute COPD exacerbation
Bronchiectasis
Hypertensive urgency
Hyperglycemia
Questionable right lower lobe/right middle lobe infiltrate (my review)
Hx of ANCA vasculitis
Treated with Rituxan in the past last dose February 2019
Follows rheumatology
CANCA vasculitis, eosinophils per muscle biopsy for myositis
Conditions present prior to admission
History of hypertension
Hyperlipidemia
60+ pack-year history of smoking quit 2021
Plan/recommendations
Respiratory status Remains somewhat tenuous with difficulties mobilizing secretions and ongoing wheezing
Supplemental oxygen-attempt to wean
Assess discharge supplemental oxygen needs at the time of discharge
Nebulizers
Decadron-begin to taper with mental confusion-Reportedly on high-dose steroids in the past without confusion
Had CT chest 10/12/2023 at [facility]-reported resolution of right upper lobe atelectasis and biapical opacifications
Consider steroid responsive interstitial process ongoing
CT chest 12/28/2023-No lobar pneumonia, bronchiectatic changes noted
Mucus clearing devices
Maximize mucolytic's
Incentive spirometry, flutter, and vest therapy
Check cultures
Empiric antibiotics
Hypertensive urgency noted
Continue antihypertensives and close monitoring of blood pressure
With confusion likely related to steroids, however, because she was on steroids in the past high-dose without confusion and she sees a neurologist for memory loss-last seen June recommend neurology reevaluation
Primary team aware and will be placing consult
History of vasculitis
Urinalysis-assess for hematuria
DVT prophylaxis-on subcu heparin
GI prophylaxis on steroids
Updated daughter at the bedside
Reviewed with Dr. Mora and team
Reviewed with nursing as well
Outpatient pulmonary follow-up -
Subjective Data
-
Date of Service:
Date of Service: December 28, 2023
Chief Complaint: Pulmonary Follow Up and Dyspnea Follow Up
Subjective:
No complaints of worsening shortness of breath, chest pain, chest congestion, pleurisy, abdominal pain or leg swelling
Review of Systems
General: Other (Per HPI)
Objective Data
Data Reviewed
Vital Signs / I&O:
Vital Signs
Temp Pulse Resp BP Pulse Ox
98.3 F 114 20 182/96 97
12/28/23 07:55 12/28/23 07:55 12/28/23 07:55 12/28/23 07:55 12/28/23 07:55
Intake and Output
12/27/23 12/28/23 12/29/23
06:59 06:59 06:59
Intake Total 240 / 240
Output Total 800 / 800
Balance 240 / 240 -800 / -800
SaO2: 97
Nasal Cannula flow liters per minute: 2
Physical Exam
General: Respiratory Distress (n) and Comfortable
HEENT: Normocephalic and Anicteric
Cardiovascular: Regular Rhythm, Murmur (n), Rub (n), JVD (n) and Peripheral Edema (Trace)
Respiratory: Wheeze (Few scattered wheezes), Crackles (n), Rhonchi (n), Non-Labored Respirations, Accessory Resp Muscle Use (n) and Stridor (n)
GI: Soft, Non Distended and Non Tender
Neurology: Awake, Alert and No Motor Deficits
Skin: Warm, Good Color, Cyanosis (n), Jaundice (n) and Rash (n)
Labs/Micro/Reports
Lab Data
12/28/23 04:41
12/28/23 04:41
Laboratory Results
12/28/23
04:15
pH Cancelled
pCO2 Cancelled
pO2 Cancelled
HCO3 Cancelled
O2 Delivery Level Cancelled
Microbiology
12/25/23 15:45 Nasal Swab Influenza Types A & B (CARITO) - Final
Negative for Influenza A & B, NAAT
Negative results must be combined with clinical observations
and patient history.
Nucleic Acid Amplification test (NAAT)performed on the
[employer] platform.
[2023-12-28] MEDS: COZAAR 100 MG PO (10:08)
[2023-12-28] MEDS: VIBRAMYCIN 100 MG PO ×2 (10:08→20:20)
[2023-12-28] MEDS: VITAMIN D3 (cholecalciferol) 50 MCG PO (10:08)
[2023-12-28] MEDS: ASPIR LOW (ENTERIC COATED) 81 MG PO (10:08)
[2023-12-28] MEDS: VITAMIN C 500 MG PO (10:09)
[2023-12-28] MEDS: PEPCID 20 MG PO ×2 (10:09→20:21)
[2023-12-28] MEDS: LIPITOR 10 MG PO (10:09)
[2023-12-28] MEDS: OSCAL CAL 500 500 MG PO (10:09)
--- NOTE | 2023-12-28 11:25 | PTCARENOTE ---
Patient transferred to [id number] with all belongings. Daughter at bedside.
[2023-12-28] MEDS: DECADRON 3 MG IV ×2 (11:31→20:20)
[2023-12-28] MEDS: MUCINEX 1200 MG PO ×2 (11:31→20:20)
--- NOTE | 2023-12-28 11:33 | CM ---
Addendum entered by Dasha Tovar 12/28/23 13:31:
Patient and seen in new room on [address]. Patient calm on O2 and indicated that she has no concerns at this time. Patient also without questions.
Original Note:
Patient seen at bedside on [address], now transfered to [address] [place] [address]. Patient daughter also present and patient confused and was agitated overnight. Patient daughter considering if family will stay with patient overnight. Patient family plan remains to have
patient return home with VN/watch for home O2 needs. CM will continue to follow for discharge planning needs.
PLan; home with no needs.
[2023-12-28 11:43] VITALS: BP 144/94
--- NOTE | 2023-12-28 13:11 | CON.NEURO4 ---
Consultation - Neurology 4
-
CONSULTING PHYSICIAN: Surjit Razo
REFERRING PHYSICIAN: Hospitalist
DICTATED BY: Surjit Razo
DATE/TIME OF REQUEST: 12/28/23
DATE/TIME OF CONSULTATION: 12/28/23
Reason for Consultation: Confusion
History of Present Illness:
The patient is an 83-year-old woman with a past ministry of reactive airway disease/COPD, hypertension vasculitis presented to hospital because of cough and dyspnea beginning around this past weekend. She has had a couple of flareups of
respiratory issues treated with antibiotics and steroids over the past couple of months. Patient was admitted to the hospital and started on IV dexamethasone.
Patient had code purple called in the early mornings of this morning due to patient's agitation and could not be redirected, given 5 mg IM olanzapine with improvement. Patient and family did not notice any mental status changes or confusions over
the weekend but rather the confusion seems sudden over the past 1 to 2 days. Currently the patient has no major complaints and is in a bit more clear state and is pleasant and cooperative.
Patient's family relates that they had seen a neurologist due to some short-term memory difficulties first started to be noticed around 2 years ago. They had had some memory testing, results did not seem to be anything serious and it was felt that
she did not need medication or further extensive investigation but rather be watched from year to year for her memory function. Memory difficulties are described as sometimes forgetting things around the house or paperwork and sometimes forgetting
some recent conversations. There has been no tremor or hallucinations. No major changes in her functioning at home. Mood has been okay.
No hallucinations here in the hospital or history of significant alcohol use.
Past Medical History: COPD, hypertension, hyperlipidemia, ANCA vasculitis
Surgical History: None
Family History: Non-contributory
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
Review of Symptoms:
Patient denies any fever, headache, chest pain, shortness of breath, GI or symptoms.
Physical Exam:
Elderly woman appears her stated age, no distress normocephalic no trauma oropharynx clear, heart rate regular breathing unlabored abdomen soft nontender no lower extremity edema seen, breathing no wheezes appreciated
Neurologic Examination:
Patient is awake and alert and conversational and pleasant, she obeys multistep commands and commands crossing the midline, no evidence of neglect, no evidence of aphasia. Can subtract 7 from 100 adequately, names a couple of animals adequately,
has decreased memory recall 0/5 after 3 minutes.On cranial nerve assessment, pupils are 3 mm bilateral, round and reactive to light and accommodation. Visual michel are full. Extraocular movements are intact. Facial sensations are intact and
bilaterally symmetrical, there is no facial asymmetry. Hearing is intact bilaterally to normal conversation volume. Tongue palate and uvula are midline. Sternocleidomastoid strengths are full bilaterally. Motor strengths are 5/5 bilateral upper and
lower extremities on medical research Coyote scale. There is no drift or involuntary movement noted. Coordination is intact by finger to nose bilaterally.
Impressions
Delirium. Contributing factors are that patient may have a baseline mild cognitive impairment (based on history alone however), in addition to medical illness of respiratory illness, sleep cycle derangements, and steroids may contribute as well.
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
Based on history there may be a mild cognitive impairment present based on short term memory difficulties but since no significant functional impairment from these I don't feel would fit a diagnosis of dementia
Recommendations:
1. Consider if the latest dose of her steroid medication could be earlier in the day which may help with sleep and agitation at night
2. 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
3. Would especially avoid benzodiazepines
4. IM olanzapine specifically as needed for agitation is acceptable, otherwise would try and avoid scheduled antipsychotics unless agitation becomes a recurrent problem
5. Check vitamin B1 B12 folate and TSH
6. I feel acceptable to not obtain any brain imaging at this time
7. Minimize invasive measures and nighttime checks as possible
8. Would follow with neurology over time to follow what may be a base mild cognitive impairment
Discussed patient care with: Hospitalist, patient and her family
--- NOTE | 2023-12-28 15:20 | CON.MD ---
Consultation - Medical
-
patient seen chart reviewed. case discussed w dr mejia. was at bedside and provided history. patient is not a good historian and was very drowsy when i was in the room having not slept all night and having received zyprexa prn earlier
today. the patient comes to w c.o cough and dyspnea. she has hx c opd (asthma) and a 60 pck year hx of cigs having given them up in 2021. she also has been noted to be hyperglycemic and there is ? of right lung infiltrate. speech evaluation was
okay. hypertension also noted to be an issue. she has hx anca vasculitis . early in the am today she became acutely agitated and was noted to say something like 'these girls are makin up excuses' she was given im zyprexa 5 mg and she was able to
calm and likely why she is now sleeping. the patient had been seen by neurology about two years ago when memory lapses were noted by her family and some mild cognitive impairment was noted but she was still able to function. the patient does not
have a hx of being treated for depression or anxiety
past psych hx none other than evaluation for mild cognitive impairment
medical hx hx anca vasculitis copd hypertension pneumonia obesity hld pulmonary nodule currently exacerbation of copd hypertension elevated blood sugars ( 143) ?dehydration (cr 1.1 bun 37) qtc 465 abnormal ecg ua looks okay.
fh non contributory
substance abuse denied
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
mse unable to really assess as patient was very sleepy presumably from not sleeping last night and from zyprexa given in the wee hours of the morning today
dx tme secondary to many possible factors including exacerbation of copd/possible pneumonia steriod rx sleep distrubance superimposed on mild cognitive impairment hyperglycemia and htn
recommendations agree with dr mejia's recommendations to check b1 b12 folate tsh, avoid bzp if possible, give steroids earlier in the day . would use very small doses of zyprexa 2.5 mg if needed but prefer zydis rather than im if possible.
daughter will be sleeping over tonight and i suspect this will help patient remain calm . will follow and assess mental status in the am
[2023-12-28 15:29] VITALS: BP 160/84
[2023-12-28 15:35] LABS: TSH 0.23 uIU/ml (0.47-4.68)
[2023-12-28 16:11] LABS: Folate 7.9 ng/ml (2.76-20); Vitamin B12 583 pg/ml (239-931)
[2023-12-28] MEDS: HEPARIN SC (18:28)
[2023-12-28 19:41] VITALS: BP 171/88
[2023-12-28] MEDS: NORVASC 5 MG PO (20:20)
[2023-12-28 23:25] VITALS: BP 151/88
[2023-12-29] MEDS: DECADRON 3 MG IV ×2 (05:45→17:27)
[2023-12-29] MEDS: XOPENEX 1.25 MG INHALANT SOLUTION INH ×3 (07:32→19:53)
[2023-12-29] MEDS: ATROVENT NEBULES 0.5 MG INH ×3 (07:32→19:53)
[2023-12-29 07:35] VITALS: BP 167/96
[2023-12-29 08:01] LABS: Hematocrit 36.5 % (37.0-47.0); Hemoglobin 12.6 g/dL (12.0-16.0); Mean Corp Hgb Conc. 34.5 g/dL (33.0-37.0); Mean Corpuscular Hgb 31.5 pg (27.0-31.0); Mean Corpuscular Volume 91.3 fL (81.0-99.0); Mean Platelet Volume 9.3 fL (7.4-10.4); Platelet Count 404 10^3/uL (130-400); Red Cell Dist. Width 13.4 % (11.5-14.5); White Blood Cell Count 13.6 10^3/uL (4.8-10.8)
[2023-12-29 08:11] LABS: ALT (SGPT) 16 U/L (0-35); AST (SGOT) 26 U/L (14-36); Albumin 4.2 g/dl (3.5-5.0); Alkaline Phosphatase 62 U/L (38-126); Blood Urea Nitrogen 36 mg/dl (7-17); Calcium 9.6 mg/dl (8.4-10.2); Carbon Dioxide 26 mmol/L (22-30); Chloride 103 mmol/L (98-107); Estimated Creatinine Clearance 42 ml/min; Glucose 108 mg/dl (70-99); Potassium 4.5 mmol/L (3.5-5.1); Sodium 138 mmol/L (135-145); Total Bilirubin 0.8 mg/dl (0.2-1.3); eGFR 50.17
--- NOTE | 2023-12-29 08:44 | W.PN.PUL.V3 ---
Today's Communication / Plan
-
no change steroids
cont mucous clearing devises
inc activity
Assessment
-
63-year-old female with history of COPD, possible asthma, smoking history with recurrent flareups of COPD/asthma over the past 6 months requiring antibiotics/steroids, now presents with acute COPD exacerbation with diffuse wheezing and hypertensive
urgency. We are asked to help from pulmonary standpoint. Of note patient is an extremely poor historian
Acute COPD exacerbation
Bronchiectasis
Hypertensive urgency
Hyperglycemia
Questionable right lower lobe/right middle lobe infiltrate (my review)
Hx of ANCA vasculitis
Treated with Rituxan in the past last dose February 2019
Follows rheumatology
CANCA vasculitis, eosinophils per muscle biopsy for myositis
Conditions present prior to admission
History of hypertension
Hyperlipidemia
60+ pack-year history of smoking quit 2021
Plan/recommendations
Respiratory status still tenuous with difficulties mobilizing secretions and ongoing wheezing in addition to sob with minimal exertion
Supplemental oxygen-attempt to wean
Assess discharge supplemental oxygen needs at the time of discharge
Nebulizers continue
Decadron- tapered 12/27 with mental confusion-(Reportedly on high-dose steroids in the past without confusion) - mental status improved 12/28 - no change in steroids today
Had CT chest 10/12/2023 at [facility]-reported resolution of right upper lobe atelectasis and biapical opacifications
Considering steroid responsive interstitial process ongoing
CT chest 12/28/2023-No lobar pneumonia, bronchiectatic changes noted
Mucus clearing devices
Maximize mucolytic's
Incentive spirometry, flutter, and vest therapy
Check cultures
Empiric antibiotics
Hypertensive urgency noted
Continue antihypertensives and close monitoring of blood pressure
Neuro eval noted
No additional testing for now
History of vasculitis
Urinalysis-no hematuria
Doubt active vasculitis in lungs
Consider ESR or CRP
DVT prophylaxis-on subcu heparin
GI prophylaxis on steroids
Updated daughter at the bedside at length as well as called yesterday and updated at length- called today [phone] and left detailed update on voice mail
Reviewed with Dr. Mora and team
Reviewed with nursing as well
Outpatient pulmonary follow-up -
Subjective Data
-
Date of Service:
Date of Service: December 29, 2023
Chief Complaint: Pulmonary Follow Up and Dyspnea Follow Up
Subjective:
less confused, still sob with min exertion, no cp, no abd pain, feels vest not helping
Review of Systems
General: Other (per hpi)
Objective Data
Data Reviewed
Vital Signs / I&O:
Vital Signs
Temp Pulse Resp BP Pulse Ox
97.7 F 105 18 167/96 92
12/29/23 07:35 12/29/23 07:42 12/29/23 07:42 12/29/23 07:35 12/29/23 07:42
Intake and Output
12/28/23 12/29/23 12/30/23
06:59 06:59 06:59
Intake Total 480 / 480
Output Total 800 / 800
Balance -800 / -800 480 / 480
SaO2: 92
Nasal Cannula flow liters per minute: 3
Physical Exam
General: Respiratory Distress (n) and Comfortable
HEENT: Normocephalic and Anicteric
Cardiovascular: Regular Rhythm, Murmur (n), Rub (n), JVD (n) and Peripheral Edema (Trace)
Respiratory: Wheeze (Few scattered wheezes), Crackles (n), Rhonchi (n), Non-Labored Respirations, Accessory Resp Muscle Use (n) and Stridor (n)
GI: Soft, Non Distended and Non Tender
Neurology: Awake, Alert and No Motor Deficits
Skin: Warm, Good Color, Cyanosis (n), Jaundice (n) and Rash (n)
Labs/Micro/Reports
Lab Data
12/29/23 07:02
12/29/23 07:02
--- NOTE | 2023-12-29 08:52 | W.PN.HOSP.TC ---
Addendum entered and electronically signed by Mandi Mora MD 12/29/23 16:05:
I saw and evaluated the patient independently. I reviewed the resident�s note and agree with findings and plan as documented by Dr. Shi.
GENERAL: well developed, well nourished, female in no apparent distress
HEENT: NC/AT-- O2 NC in place
HEART: regular rate and rhythm, +S1, +S2
LUNGS: coarse rhonchi with wheezing bilaterally all lung michel, improving
ABDOM: soft, nontender, nondistended, + bowel sounds
EXT: no cyanosis, clubbing, or edema
NEUROLOGIC: grossly intact
acute hypoxemic resp failure due to Recurrent asthma/COPD exacerbation--cont nebs/steroids--apprec pulm-- started zithromax to cover for bronchitis but QTC long so changed to doxy--agree with consideration of advair, symbicort etc--CT scan chest
reviewed and noted with bronchiectasis--pt refusing BiPAP
TME vs mild cognitive impairment/dementia--multiple reasons...hypoxia, steroids, memory loss most likely--less likely ANCA vasculitis--possible UTI--UA negative--apprec neuro--no need for imaging
Essential hypertension--Continue losartan--BP elevated (likely worse with agitation)--Continue amlodipine and PRN hydralazine
Hyperlipidemia--Continue statin
Sinus tachycardia--possibly due to duonebs and SOB
DVT prophylaxis: Remains on subcutaneous heparin. Increased to every 8 hours
Code status --Full code
Original Note:
Today's Communication/Plan
-
Patient steroids will be administered earlier in the day to avoid nighttime confusion and agitation. Will continue with respiratory treatments to help improve breathing. Patient has been encouraged to moderately increase her activity level within
safe limits. Continue to monitor patient for improvement of breathing.
Assessment / Plan
Assessment / Plan
- Acute COPD exacerbation: Monitoring - Unresolved
DuoNebs every 6 hours
Dexamethasone 4 mg every 8 hours
Patient would benefit from BiPAP but unfortunately refused
Patient will benefit from a long-acting inhaler
Patient tested negative for influenza types a and B
Pulmonology consult - Pulmonology consult suspected COPD given the history of smoking. They recommended that nebulizer to be continued and continue ipratropium. They also stated that she will need monitoring of oxygen requirements as there is a
possibility she may require home oxygen. Patient was switched from azithromycin to doxycycline due to concerns of QT prolongation. They also recommended monitoring both radiographically and clinically as there is consideration for nonsteroid
therapy... COPD exacerbation may be a consequence of a steroid responsive interstitial process.
Barium swallow ordered to rule out possibility of aspiration pneumonia risk. Study conducted showed no fluoroscopic evidence of airway aspiration.
Patient currently on 2 L nasal cannula with an SaO2 of 97
Pulmonology recommended tapering down Decadron due to mental confusion. Reportedly the patient has been on high-dose steroids in the past without confusion. CT chest conducted on 12/28/2023 showed no lobar pneumonia, bronchiectatic changes noted.
They recommended mucus clearing devices, maximizing mucolytic's, incentive spirometry, flutter, and vest therapy. - Recommends increasing activity level safely.
- Essential hypertension: Monitoring - Unresolved
Continue losartan
Continue prophylactic aspirin
Hydralazine 5 mg p.o. every 4 hours as needed added
Amlodipine 5 mg added nightly
Patient's blood pressure was elevated between 150-180 systolic blood pressure overnight possibly due to agitation and confusion. -Will continue to monitor.
- Hyperlipidemia: Stable
Continue statin
- Delirium Secondary to Steroid use: Monitoring
Patient was acutely agitated in the evening of 12/26 and in the morning of 12/27. Possibly secondary to steroid usage vs hospital-acquired delirium.
Neurology consult has been ordered to assess the patient. neurology advised that the patients steroids be administered in earlier in the day to help avoid delirium and agitation later in the evening.
Psychiatry consult has been ordered. - psychiatry agreed with neurology assessment, and stated that the steroid timing adjustment could help improve patient's confusion and agitation in the evening. - psychiatry believes that the patient is stable
after this medication adjustment and has signed off
steroids will be administered early to avoid evening agitation
-Sinus tachycardia: Monitoring
Pulse is consistently elevated above 100 - is 105 on 12/28
Twelve-lead electrocardiogram showed sinus tachycardia, right atrial enlargement, inferior infarct with undetermined age.
- Hyperglycemia: Monitoring
Patient's glucose level is 108 on 12/28
Continue to monitor
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
Treated prior with Rituxan in the past - last dose was given February 2019
Follows with outpatient rheumatology
C-ANCA vasculitis, eosinophils per muscle biopsy for myositis
- Overweight:
Patient's BMI is 27.9 which categorized the patient is overweight.
She has been counseled in regards to improved dietary habits and we will consider dietary consult.
- Low TSH Level:
Free T4 level ordered to further assess thyroid function
DVT prophylaxis: Remains on subcutaneous heparin. Increased to every 8 hours
Full code
Regular diet
Anticipated Discharge: > 48 hours
Subjective/Interval History
-
Date of Service: December 29, 2023
Met with patient at the bedside. she offers no complaints and states that she is feeling slightly better than she did yesterday. last night she slept somewhat better, but unfortunately, she woke up again around three in the morning and stated that
she was anxious and needed to breathe. She removed her nasal cannula and sat at the edge of her bed and was breathing heavily before calming down, inserting her nasal cannula and going back to bed. patient does not recall these events happening
overnight.
Objective Data
-
Labs:
Laboratory Results
12/29/23
07:02
WBC 13.6 H
Hgb 12.6
Hct 36.5 L
Plt Count 404 H
Sodium 138
Potassium 4.5
Chloride 103
Carbon Dioxide 26
BUN 36 H
Creatinine 1.1 H
Glucose 108 H
Calcium 9.6
Total Bilirubin 0.8
AST 26
ALT 16
Alkaline Phosphatase 62
Vital Signs:
Vital Signs
Temp Pulse Resp BP Pulse Ox
97.7 F 105 18 167/96 92
12/29/23 07:35 12/29/23 07:42 12/29/23 07:42 12/29/23 07:35 12/29/23 08:44
I&O
12/28/23 12/29/23 12/30/23
06:59 06:59 06:59
Intake Total 480 / 480
Output Total 800 / 800
Balance -800 / -800 480 / 480
Review of Systems
-
History Source: Patient and Family
Constitutional: Reports No Symptoms
EENT: Reports No Symptoms Reported
Respiratory: Reports Cough and Wheezing
Cardiac: Reports No Symptoms
Abdomen/GI: Reports No Symptoms
Breast: Reports No Symptoms
Genitourinary: Reports No Symptoms
Musculoskeletal: Reports No Symptoms
Skin: Reports No Symptoms
Neuro: Reports No Symptoms
Endocrine: Reports No Symptoms
Hematologic / Lymphatic: Reports No Symptoms
Allergy / Immunology: Reports No Symptoms
Physical Exam
-
General: Well Developed, Well Nourished, No Apparent Distress and Comfortable
HEENT: Normocephalic, Atraumatic and Moist Mucous Membranes
Respiratory: Wheezes, Crackles and Non Labored Respirations
Cardiac: Regular Rhythm, Murmur and Rub
Breast: Deferred by me
GI: Soft, Nontender, Nondistended and Normal Bowel Sounds
Rectal: Deferred by Provider
Genito-urinary: Deferred by me
Musculoskeletal: No Clubbing and No Cyanosis
Skin: Warm and Dry
Neuro: Nonfocal/Grossly Intact
[2023-12-29] MEDS: COZAAR 100 MG PO (08:55)
[2023-12-29] MEDS: ASPIR LOW (ENTERIC COATED) 81 MG PO (08:55)
[2023-12-29] MEDS: HEPARIN 5000 UNITS SC ×2 (08:56→17:25)
[2023-12-29] MEDS: LIPITOR 10 MG PO (08:57)
[2023-12-29] MEDS: MUCINEX 1200 MG PO ×2 (08:57→20:39)
[2023-12-29] MEDS: PEPCID 20 MG PO ×2 (08:58→20:38)
[2023-12-29] MEDS: VITAMIN C 500 MG PO (08:58)
[2023-12-29] MEDS: VITAMIN D3 (cholecalciferol) 50 MCG PO (08:58)
[2023-12-29] MEDS: VIBRAMYCIN 100 MG PO ×2 (08:58→20:38)
[2023-12-29] MEDS: OSCAL CAL 500 500 MG PO (08:58)
[2023-12-29 11:10] VITALS: BP 151/74
--- NOTE | 2023-12-29 11:43 | W.PN.UPDATE ---
Update Note
Progress Note Update
patient seen chart reviewed. d at bedside . discussed w nursing. the patient is much much better today. she was bright eyed and pleasantly interactive. she did have a period of unrest during the night d was at bedside. patient was calling out for
her d felt she was still asleep. the incident resolved quickly. patient and d expressing gratitude for what they feel has been great care here. she has not required prn. mental status much improved. noted b12 folate nl. tsh on the low
side to be addressed by hospitalist. would continue to avoid bzps psych will sign off.
--- NOTE | 2023-12-29 14:09 | CM ---
Patient daughter in room with patient and physician. Patient stated that she understood reasons for her to remain in hospital at this time. Physician estimated possible discharge early next week pending assessments. Patient does not have home O2 at
this time. Patient daughter is asking for name of the prior provider of home O2 but would accept [facility] if home O2 is needed. Patient would accept [facility] for home [facility]/OT if recommended. Patient is more clear with
daughter and seemed to understand plan is for discharge home with VN/home O2 pending functional assessments closer to discharge. CM will continue to follow for discharge planning needs.
Plan;home with VN and watch for home O2 needs.
[2023-12-29 15:35] VITALS: BP 137/71
[2023-12-29 19:23] VITALS: BP 150/77
[2023-12-29] MEDS: NORVASC 5 MG PO (21:27)
[2023-12-29 23:28] VITALS: BP 143/76
[2023-12-30] VITALS (10 sets, daily range): BP systolic 106–184; BP diastolic 59–102
[2023-12-30] MEDS: HEPARIN 5000 UNITS SC ×4 (00:06→23:46)
[2023-12-30] MEDS: APRESOLINE 5 MG PO (02:42)
[2023-12-30] MEDS: XOPENEX 1.25 MG INHALANT SOLUTION INH ×5 (02:56→23:55)
[2023-12-30] MEDS: COZAAR 100 MG PO (04:45)
[2023-12-30] MEDS: DECADRON 3 MG IV (04:49)
[2023-12-30 06:32] LABS: Hematocrit 33.6 % (37.0-47.0); Hemoglobin 11.5 g/dL (12.0-16.0); Mean Corp Hgb Conc. 34.2 g/dL (33.0-37.0); Mean Corpuscular Hgb 30.7 pg (27.0-31.0); Mean Corpuscular Volume 89.6 fL (81.0-99.0); Mean Platelet Volume 9.3 fL (7.4-10.4); Platelet Count 373 10^3/uL (130-400); Red Blood Cell Count 3.75 10^6/uL (4.20-5.40); Red Cell Dist. Width 13.7 % (11.5-14.5); White Blood Cell Count 15.5 10^3/uL (4.8-10.8)
[2023-12-30 07:00] LABS: ALT (SGPT) 16 U/L (0-35); AST (SGOT) 25 U/L (14-36); Albumin 3.8 g/dl (3.5-5.0); Alkaline Phosphatase 57 U/L (38-126); Blood Urea Nitrogen 40 mg/dl (7-17); Calcium 9.3 mg/dl (8.4-10.2); Carbon Dioxide 27 mmol/L (22-30); Chloride 103 mmol/L (98-107); Estimated Creatinine Clearance 38 ml/min; Glucose 115 mg/dl (70-99); Potassium 4.6 mmol/L (3.5-5.1); Sodium 136 mmol/L (135-145); Total Bilirubin 0.8 mg/dl (0.2-1.3); Total Protein 6.4 g/dl (6.3-8.2); eGFR 45.19
[2023-12-30] MEDS: ATROVENT NEBULES 0.5 MG INH ×4 (07:15→23:55)
[2023-12-30 07:58] LABS: Free T4 1.12 ng/dl (0.78-2.19)
[2023-12-30] MEDS: VITAMIN D3 (cholecalciferol) 50 MCG PO (08:37)
[2023-12-30] MEDS: MUCINEX 1200 MG PO ×2 (08:37→20:48)
[2023-12-30] MEDS: OSCAL CAL 500 500 MG PO (08:37)
[2023-12-30] MEDS: LIPITOR 10 MG PO (08:37)
[2023-12-30] MEDS: VITAMIN C 500 MG PO (08:37)
[2023-12-30] MEDS: VIBRAMYCIN 100 MG PO ×2 (08:37→20:49)
[2023-12-30] MEDS: ASPIR LOW (ENTERIC COATED) 81 MG PO (08:37)
[2023-12-30] MEDS: PEPCID 20 MG PO ×2 (08:38→20:48)
--- NOTE | 2023-12-30 11:31 | W.PN.PUL3 ---
Today's Communication / Plan
-
Transition to prednisone
Continue nebulizer
Will add Pulmicort
Oral doxycycline and complete 5 days
Home oxygen assessment tomorrow
Continue secretion clearance intervention
Hopefully discharge in next 24 hours
Assessment
-
63-year-old female with history of COPD, possible asthma, smoking history with recurrent flareups of COPD/asthma over the past 6 months requiring antibiotics/steroids, now presents with acute COPD exacerbation with diffuse wheezing and hypertensive
urgency. We are asked to help from pulmonary standpoint. Of note patient is an extremely poor historian
Acute COPD exacerbation
Bronchiectasis
Hypertensive urgency
Hyperglycemia
Questionable right lower lobe/right middle lobe infiltrate (my review)
Hx of ANCA vasculitis
Treated with Rituxan in the past last dose February 2019
Follows rheumatology
CANCA vasculitis, eosinophils per muscle biopsy for myositis
Conditions present prior to admission
History of hypertension
Hyperlipidemia
60+ pack-year history of smoking quit 2021
Plan/recommendations
Patient feels better. Ambulated to the restroom without shortness of breath
Eager to go home.
Not able to produce sputum.
Remains on 3 L - 4 L of supplemental oxygen.
-
Lung exam with minimal expiratory wheezing.
Comfortable resting.
-
Transition to prednisone 40 mg and decrease by 10 mg every 72 hours to off.
Assess home oxygen needs tomorrow morning, order will be placed.
:
Patient has a nebulizer machine at home
Should be discharged on:
Nebulizers continue: Xopenex/ipratropium.
Will add Pulmicort twice a day as well, to continue until seen in the office.
-
Had CT chest 10/12/2023 at [place]-reported resolution of right upper lobe atelectasis and biapical opacifications
Considering steroid responsive interstitial process ongoing
CT chest 12/28/2023-No lobar pneumonia, bronchiectatic changes noted
Mucus clearing devices
Maximize mucolytic's
Incentive spirometry, flutter, and vest therapy
Has not been able to produce a sputum.
Negative influenza
Continue doxycycline, complete total of 5 days. No infiltrates on CAT scan.
Neuro eval noted
No additional testing for now
History of vasculitis
Urinalysis-no hematuria
No evidence for vasculitis in the lungs based on CT chest.
DVT prophylaxis-on subcu heparin
GI prophylaxis on steroids
Dr. Walker updated at the bedside 12/30/[address] iEsenberg, updated daughter at the bedside at length- called 12/29/2023, and left detailed update on voice mail
Outpatient pulmonary follow-up -
-
Hopefully can discharge in the next 24 hours.
Subjective Data
-
Date of Service:
Date of Service: December 30, 2023
Chief Complaint: Pulmonary Follow Up and Dyspnea Follow Up
Review of Systems
General: Fever (n)
Cardiopulmonary: Dyspnea (Improved) and Cough
GI: Abdominal Pain (n) and Nausea (n)
Objective Data
Data Reviewed
Vital Signs / I&O / Oxygen:
Vital Signs
Temp Pulse Resp BP Pulse Ox
98 F 108 22 144/70 90
12/30/23 07:40 12/30/23 07:40 12/30/23 07:40 12/30/23 07:40 12/30/23 07:40
Intake and Output
12/29/23 12/30/23 12/31/23
06:59 06:59 06:59
Intake Total 480 / 480 1620 / 1620
Balance 480 / 480 1620 / 1620
SaO2 90
Nasal Cannula flow liters per 3
minute
Physical Exam
General: Respiratory Distress (n) and Comfortable
HEENT: Normocephalic and Anicteric
Cardiovascular: Regular Rhythm, Murmur (n), Rub (n), JVD (n) and Peripheral Edema (Trace)
Respiratory: Wheeze (Few scattered wheezes), Crackles (n), Rhonchi (n), Non-Labored Respirations, Accessory Resp Muscle Use (n) and Stridor (n)
GI: Soft, Non Distended and Non Tender
Neurology: Awake, Alert and No Motor Deficits
Skin: Warm, Good Color, Cyanosis (n), Jaundice (n) and Rash (n)
Labs/Micro/Reports
Lab Data
12/30/23 06:21
12/30/23 06:21
[2023-12-30] MEDS: PULMICORT INH (13:04)
--- NOTE | 2023-12-30 15:05 | W.PN.HOSP.TC ---
Addendum entered and electronically signed by Mandi Mora MD 12/30/23 15:38:
I saw and evaluated the patient independently. I reviewed the resident�s note and agree with findings and plan as documented by Dr. Khan.
GENERAL: well developed, well nourished, female in no apparent distress
HEENT: NC/AT-- O2 NC in place
HEART: regular rate and rhythm, +S1, +S2
LUNGS: limited rhonchi with mild wheezing bilaterally all lung michel, improving
ABDOM: soft, nontender, nondistended, + bowel sounds
EXT: no cyanosis, clubbing, or edema
NEUROLOGIC: grossly intact
acute hypoxemic resp failure due to Recurrent asthma/COPD exacerbation--cont nebs/steroids--apprec pulm-- cont doxy--agree with consideration of advair, symbicort etc--CT scan chest reviewed and noted with bronchiectasis--pt refusing BiPAP
TME vs mild cognitive impairment/dementia--multiple reasons...hypoxia, steroids, memory loss most likely--less likely ANCA vasculitis--not UTI--UA negative--apprec neuro--no need for imaging
Essential hypertension--Continue losartan--BP elevated (likely worse with agitation)--Continue amlodipine and PRN hydralazine
Hyperlipidemia--Continue statin
Sinus tachycardia--possibly due to duonebs and SOB
euthyroid sick--agree with rechecking in 3-4 weeks
DVT prophylaxis: Remains on subcutaneous heparin. Increased to every 8 hours
Code status --Full code
Original Note:
Today's Communication/Plan
-
Monitor respiratory status, home O2 eval, discharge planning
Assessment / Plan
Assessment / Plan
Acute hypoxemic respiratory failure
Secondary to recurrent asthma/COPD exacerbation
Flu A/B negative.
Barium swallow to evaluate aspiration pneumonia risk: No evidence of airway aspiration.
-Continue nebulizer treatment/steroids/ipratropium. Pulm added budesonide. Switched to doxycycline due to concerns of QT elongation, continue. Decadron tapered and switched to prednisone due to altered mental status
-Incentive [place]/Acapella
-Patient w declined BiPAP
-Appreciate pulm input
-Wean O2 as tolerated
-Home O2 eval
Delirium
On background of likely cognitive impairment/dementia
Likely multifactorial: Steroid versus hypoxia versus hospital stay. Unlikely ANCA vasculitis. No focal symptoms
-Appreciate neuro and psych input.
-Improved, likely at baseline mental status with adjusted steroid dose and timing
- Essential hypertension:
Continue losartan
Continue prophylactic aspirin
Hydralazine 5 mg p.o. every 4 hours as needed added
Amlodipine 5 mg added nightly
- Hyperlipidemia: Stable
Continue statin
-Sinus tachycardia: Monitoring
Pulse 90s to 100s. Twelve-lead electrocardiogram showed sinus tachycardia, right atrial enlargement, inferior infarct with undetermined age.
-Monitor
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
Treated prior with Rituxan in the past - last dose was given February 2019
Follows with outpatient rheumatology
C-ANCA vasculitis, eosinophils per muscle biopsy for myositis
- Overweight:
Patient's BMI is 27.9 which categorized the patient is overweight.
She has been counseled in regards to improved dietary habits and we will consider dietary consult.
- Low TSH Level:
TSH 0.20, free T4 1.12
Likely euthyroid sick. Repeat TSH in 3 weeks outpatient
DVT prophylaxis: subQ heparin
Full code
Regular diet
Anticipated Discharge: Within 24 hours
Subjective/Interval History
-
Date of Service: December 30, 2023
Marked subjective and clinical improvement
Objective Data
-
Labs:
Laboratory Results
12/30/23
06:21
WBC 15.5 H
Hgb 11.5 L
Hct 33.6 L
Plt Count 373
Sodium 136
Potassium 4.6
Chloride 103
Carbon Dioxide 27
BUN 40 H
Creatinine 1.2 H
Glucose 115 H
Calcium 9.3
Total Bilirubin 0.8
AST 25
ALT 16
Alkaline Phosphatase 57
Vital Signs:
Vital Signs
Temp Pulse Resp BP Pulse Ox
97.6 F 89 22 145/65 90
12/30/23 11:40 12/30/23 13:08 12/30/23 13:08 12/30/23 11:40 12/30/23 13:08
I&O
12/29/23 12/30/23 12/31/23
06:59 06:59 06:59
Intake Total 480 / 480 1620 / 1620
Balance 480 / 480 1620 / 1620
Physical Exam
-
HEENT: Oxygen (4L nasal cannula)
Respiratory: Wheezes (Mild to moderate diffuse wheezes) and Non Labored Respirations
Cardiac: Regular Rhythm and S1/S2; Negative Murmur or Rub
GI: Soft, Nontender, Nondistended and Normal Bowel Sounds
Skin: Warm and Dry
Neuro: Awake and Alert
Psych: Calm
[2023-12-30] MEDS: PULMICORT 0.5 MG INH (18:26)
[2023-12-30] MEDS: NORVASC 5 MG PO (21:43)
[2023-12-31 03:00] VITALS: BP 149/79
[2023-12-31 06:50] LABS: Hemoglobin 11.4 g/dL (12.0-16.0); Mean Corp Hgb Conc. 34.5 g/dL (33.0-37.0); Mean Corpuscular Hgb 31.1 pg (27.0-31.0); Mean Corpuscular Volume 89.9 fL (81.0-99.0); Mean Platelet Volume 9.5 fL (7.4-10.4); Platelet Count 368 10^3/uL (130-400); Red Blood Cell Count 3.67 10^6/uL (4.20-5.40); Red Cell Dist. Width 13.7 % (11.5-14.5); White Blood Cell Count 21.2 10^3/uL (4.8-10.8)
[2023-12-31 07:11] LABS: Blood Urea Nitrogen 54 mg/dl (7-17); Calcium 9.2 mg/dl (8.4-10.2); Carbon Dioxide 24 mmol/L (22-30); Chloride 103 mmol/L (98-107); Estimated Creatinine Clearance 31 ml/min; Glucose 82 mg/dl (70-99); Potassium 4.4 mmol/L (3.5-5.1); Sodium 136 mmol/L (135-145); eGFR 34.58
[2023-12-31] MEDS: XOPENEX 1.25 MG INHALANT SOLUTION INH ×3 (07:17→21:06)
[2023-12-31] MEDS: ATROVENT NEBULES 0.5 MG INH ×3 (07:17→21:05)
[2023-12-31] MEDS: PULMICORT 0.5 MG INH ×2 (07:17→21:06)
[2023-12-31 07:35] VITALS: BP 130/56
[2023-12-31] MEDS: OSCAL CAL 500 500 MG PO (09:21)
[2023-12-31] MEDS: ASPIR LOW (ENTERIC COATED) 81 MG PO (09:21)
[2023-12-31] MEDS: DELTASONE 40 MG PO (09:21)
[2023-12-31] MEDS: MUCINEX 1200 MG PO ×2 (09:22→20:36)
[2023-12-31] MEDS: VITAMIN D3 (cholecalciferol) 50 MCG PO (09:22)
[2023-12-31] MEDS: VITAMIN C 500 MG PO (09:22)
[2023-12-31] MEDS: PEPCID 20 MG PO ×2 (09:22→20:36)
[2023-12-31] MEDS: LIPITOR 10 MG PO (09:26)
[2023-12-31] MEDS: VIBRAMYCIN 100 MG PO ×2 (09:26→20:36)
[2023-12-31] MEDS: COZAAR 100 MG PO (09:26)
[2023-12-31] MEDS: HEPARIN 5000 UNITS SC ×3 (09:29→23:56)
--- NOTE | 2023-12-31 09:44 | RESPNOTE ---
Ambulation Pulse ox done at this time
Resting RA SAT 87%
Applied 3L NC 88-90%
Patient walked approx 25 ft desaturated to 86% increased to 6 liters 88-90%
Patient did rest on chair after approx 50 ft-decreased to 4 liters 89-90%
Return walk to room patient significantly more SOB (30's) increased to 8 liter for SATS 85% (10FT) recovery to 88% decreased
back to 4 liters for duration of walk- 50 FT back into room on 6 liters 88-90% RR 30-35. Pt sat on end of bed and recovered back to 91% on 4 liters within 5 minutes. Patient did have a congested non productive cough the entire time.
[2023-12-31 11:30] VITALS: BP 121/63
--- NOTE | 2023-12-31 11:31 | W.PN.PUL3 ---
Today's Communication / Plan
-
Continue with current care
Nebulizers
Secretion clearance intervention
Follow renal function
Continue antibiotics
Prednisone taper
Physical therapy as tolerated
Oxygen supplementation, will need to be arranged upon discharge.
Assessment
-
63-year-old female with history of COPD, possible asthma, smoking history with recurrent flareups of COPD/asthma over the past 6 months requiring antibiotics/steroids, now presents with acute COPD exacerbation with diffuse wheezing and hypertensive
urgency. We are asked to help from pulmonary standpoint. Of note patient is an extremely poor historian
Acute COPD exacerbation
Bronchiectasis
Hypertensive urgency
Hyperglycemia
Questionable right lower lobe/right middle lobe infiltrate (my review)
Hx of ANCA vasculitis
Treated with Rituxan in the past last dose February 2019
Follows rheumatology
CANCA vasculitis, eosinophils per muscle biopsy for myositis
Conditions present prior to admission
History of hypertension
Hyperlipidemia
60+ pack-year history of smoking quit 2021
Plan/recommendations
Patient feels better.
Oxygen assessment noted: Up to 6 L supplemental oxygen with ambulation.
4 L at rest.
Cough and congestion.
Patient subjectively feels better.
Unable to produce phlegm.
Continue oxygen supplementation as above. New oxygen requirements are new for her.
-
Lung exam with minimal expiratory wheezing.
Comfortable resting.
-
Continue prednisone 40 mg and decrease by 10 mg every 72 hours to off.
.
Patient has a nebulizer machine at home
Recommend discharging on:
Nebulizers continue: Xopenex/ipratropium.
Will add Pulmicort twice a day as well, to continue until seen in the office.
-
Had CT chest 10/12/2023 at [place]-reported resolution of right upper lobe atelectasis and biapical opacifications
Considering steroid responsive interstitial process ongoing
CT chest 12/28/2023-No lobar pneumonia, bronchiectatic changes noted
Continue mucus clearing devices
Maximize mucolytic's
Incentive spirometry, flutter, and vest therapy
Has not been able to produce a sputum.
Negative influenza
Continue doxycycline, complete total of 5 days. No infiltrates on CAT scan.
Neuro eval noted
No additional testing for now
Acute kidney injury noted creatinine up to 1.5. Management per primary team.
History of vasculitis
Urinalysis-no hematuria
No evidence for vasculitis in the lungs based on CT chest.
DVT prophylaxis-on subcu heparin
GI prophylaxis on steroids
Dr. Walker updated at the bedside 12/30/2023, updated daughter 12/31/2023.
Dr. Eisenberg, updated daughter at the bedside at length- called 12/29/2023, and left detailed update on voice mail
Outpatient pulmonary follow-up -
-
From the pulmonary perspective, patient will need supplemental oxygen. Acute kidney injury noted rising creatinine.
Unlikely to be able to be discharged at this point.
Will continue to follow
Subjective Data
-
Date of Service:
Date of Service: December 31, 2023
Chief Complaint: Pulmonary Follow Up and Dyspnea Follow Up
Subjective:
Continues to report cough and congestion.
Difficulty expectorating.
Remains on supplemental oxygen.
Review of Systems
General: Fever (n)
Cardiopulmonary: Dyspnea, Dyspnea on Exertion, Cough and Sputum Production
Objective Data
Data Reviewed
Vital Signs / I&O / Oxygen:
Vital Signs
Temp Pulse Resp BP Pulse Ox
97.7 F 95 24 130/56 90
12/31/23 07:35 12/31/23 07:35 12/31/23 07:35 12/31/23 07:35 12/31/23 07:35
Intake and Output
12/30/23 12/31/23 01/01/24
06:59 06:59 06:59
Intake Total 1620 / 1620 1500 / 1500
Balance 1620 / 1620 1500 / 1500
SaO2 90
Nasal Cannula flow liters per 3
minute
Physical Exam
General: Respiratory Distress (n) and Comfortable
HEENT: Normocephalic and Anicteric
Cardiovascular: Regular Rhythm, Murmur (n), Rub (n), JVD (n) and Peripheral Edema (Trace)
Respiratory: Wheeze (Few scattered wheezes), Crackles (n), Rhonchi (n), Non-Labored Respirations, Accessory Resp Muscle Use (n) and Stridor (n)
GI: Soft, Non Distended and Non Tender
Neurology: Awake, Alert and No Motor Deficits
Skin: Warm, Good Color, Cyanosis (n), Jaundice (n) and Rash (n)
Labs/Micro/Reports
Lab Data
12/31/23 06:16
12/31/23 06:16
[2023-12-31] MEDS: NSS 500 IV (11:32)
--- NOTE | 2023-12-31 12:46 | CM ---
CM met with pt and daughter at bedside.
Discussed home oxygen. They are in agreement. Offered choice of DME company, pt has history of home oxygen with [employer] and that would be their preference. Also discussed VN and offered choice of home health agency. Preference is for [facility]. [facility]
and [facility]. [facility]. Will send referral via [facility].
[2023-12-31 15:40] VITALS: BP 121/54
--- NOTE | 2023-12-31 17:55 | W.PN.HOSP.TC ---
Addendum entered and electronically signed by Mandi Mora MD 12/31/23 18:31:
I saw and evaluated the patient independently. I reviewed the resident�s note and agree with findings and plan as documented by Dr. Khan.
GENERAL: well developed, well nourished, female in no apparent distress
HEENT: NC/AT-- O2 NC in place
HEART: regular rate and rhythm, +S1, +S2
LUNGS: limited rhonchi with mild wheezing bilaterally all lung michel, improving
ABDOM: soft, nontender, nondistended, + bowel sounds
EXT: no cyanosis, clubbing, or edema
NEUROLOGIC: grossly intact
Patient is in need of oxygen at 4 liters/minute via nasal cannula continuously due to pulse oximetry of 87% on room air at rest. Oxygen will help to improve hypoxemia. Patient is mobile within the home. DuoNeb therapy has been tried and is
ineffective in treating hypoxemia related symptoms. Oxygen is needed to improve symptoms.
acute hypoxemic resp failure due to Recurrent asthma/COPD exacerbation--cont nebs/steroids--apprec pulm-- cont doxy--agree with consideration of advair, symbicort etc--CT scan chest reviewed and noted with bronchiectasis--pt refusing
BiPAP--qualifies for home O2
TME vs mild cognitive impairment/dementia--multiple reasons...hypoxia, steroids, memory loss at baseline most likely--less likely ANCA vasculitis--not UTI--UA negative--apprec neuro--no need for imaging
ALFREDO--losartan held and IVF given--follow creat
Essential hypertension--Hold losartan--BP elevated (likely worse with agitation)--Continue amlodipine and PRN hydralazine
Hyperlipidemia--Continue statin
Sinus tachycardia--possibly due to duonebs and SOB
euthyroid sick--agree with rechecking in 3-4 weeks
DVT prophylaxis: Remains on subcutaneous heparin. Increased to every 8 hours
Code status --Full code
Original Note:
Today's Communication/Plan
-
Respiratory treatments, hold losartan, IV fluid.
Assessment / Plan
Assessment / Plan
Acute hypoxemic respiratory failure
Secondary to recurrent asthma/COPD exacerbation
Flu A/B negative.
Barium swallow to evaluate aspiration pneumonia risk: No evidence of airway aspiration.
-Continue nebulizer treatment/steroids/ipratropium/budesonide. Switched to doxycycline due to concerns of QT elongation, continue. Decadron tapered and switched to prednisone taper due to altered mental status
-Incentive [place]/Acapella
-Patient declined BiPAP
-Appreciate pulm input
-Wean O2 as tolerated
-Home O2 eval: Resting RA sat 87%. 3 L nasal cannula 88 to 90%. Peak demand of 8 L for sats 85% on prolonged ambulation. Congested nonproductive cough noted throughout eval
Delirium
On background of likely cognitive impairment/dementia
Likely multifactorial: Steroid versus hypoxia versus hospital stay. Unlikely ANCA vasculitis. No focal symptoms
-Appreciate neuro and psych input.
-Resolved, at baseline mental status with adjusted steroid dose and timing
- Essential hypertension:
Hold losartan for increased creatinine 1.5 today
Continue prophylactic aspirin
Hydralazine 5 mg p.o. every 4 hours as needed added
Amlodipine 5 mg added nightly
-Acute kidney injury:
Creatinine 1.5 today. Baseline 0.8
Possibly dehydration. Patient states she eats and drinks okay
Give 500 mL IV fluid bolus. Hold losartan
Reassess, follow BMP
- Hyperlipidemia: Stable
Continue statin
-Sinus tachycardia: Monitoring
Pulse 90s to 100s. Twelve-lead electrocardiogram showed sinus tachycardia, right atrial enlargement, inferior infarct with undetermined age.
-Monitor
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
Treated prior with Rituxan in the past - last dose was given February 2019
Follows with outpatient rheumatology
C-ANCA vasculitis, eosinophils per muscle biopsy for myositis
- Overweight:
Patient's BMI is 27.9 which categorized the patient is overweight.
She has been counseled in regards to improved dietary habits and we will consider dietary consult.
- Low TSH Level:
TSH 0.20, free T4 1.12
Likely euthyroid sick. Repeat TSH in 3 weeks outpatient
DVT prophylaxis: subQ heparin
Full code
Regular diet
Anticipated Discharge: Within 24 hours
Subjective/Interval History
-
Date of Service: December 31, 2023
Improved respiratory symptoms
Objective Data
-
Labs:
Laboratory Results
12/31/23
06:16
WBC 21.2 H
Hgb 11.4 L
Hct 33.0 L
Plt Count 368
Sodium 136
Potassium 4.4
Chloride 103
Carbon Dioxide 24
BUN 54 H
Creatinine 1.5 H
Glucose 82
Calcium 9.2
Vital Signs:
Vital Signs
Temp Pulse Resp BP Pulse Ox
97.6 F 92 20 121/54 90
12/31/23 15:40 12/31/23 15:40 12/31/23 15:40 12/31/23 15:40 12/31/23 15:40
I&O
12/30/23 12/31/23 01/01/24
06:59 06:59 06:59
Intake Total 1620 / 1620 1500 / 1500
Balance 1620 / 1620 1500 / 1500
Physical Exam
-
Respiratory: Wheezes (mild diffuse wheezing)
Cardiac: Regular Rhythm and S1/S2; Negative Murmur or Rub
GI: Soft, Nontender, Nondistended and Normal Bowel Sounds
Musculoskeletal: No Clubbing, No Cyanosis and No Edema
Neuro: Awake, Alert and Oriented
Psych: Calm
[2023-12-31 19:53] VITALS: BP 141/63
[2023-12-31] MEDS: NORVASC 5 MG PO (21:50)
[2023-12-31 23:44] VITALS: BP 143/77
[2024-01-01 03:25] VITALS: BP 169/88
[2024-01-01] MEDS: APRESOLINE 5 MG PO (05:09)
[2024-01-01 05:58] LABS: Hematocrit 34.5 % (37.0-47.0); Hemoglobin 11.9 g/dL (12.0-16.0); Mean Corp Hgb Conc. 34.5 g/dL (33.0-37.0); Mean Corpuscular Hgb 32.1 pg (27.0-31.0); Mean Platelet Volume 9.6 fL (7.4-10.4); Platelet Count 383 10^3/uL (130-400); Red Blood Cell Count 3.71 10^6/uL (4.20-5.40); Red Cell Dist. Width 13.9 % (11.5-14.5); White Blood Cell Count 20.2 10^3/uL (4.8-10.8)
[2024-01-01 06:25] LABS: Blood Urea Nitrogen 47 mg/dl (7-17); Calcium 9.2 mg/dl (8.4-10.2); Carbon Dioxide 25 mmol/L (22-30); Chloride 105 mmol/L (98-107); Estimated Creatinine Clearance 38 ml/min; Glucose 104 mg/dl (70-99); Potassium 4.8 mmol/L (3.5-5.1); Sodium 136 mmol/L (135-145); eGFR 45.19
[2024-01-01] MEDS: PULMICORT 0.5 MG INH (07:21)
[2024-01-01] MEDS: ATROVENT NEBULES 0.5 MG INH ×2 (07:21→14:10)
[2024-01-01] MEDS: XOPENEX 1.25 MG INHALANT SOLUTION INH ×2 (07:21→14:10)
[2024-01-01 07:50] VITALS: BP 148/73
[2024-01-01] MEDS: OSCAL CAL 500 500 MG PO (08:25)
[2024-01-01] MEDS: VIBRAMYCIN 100 MG PO (08:25)
[2024-01-01] MEDS: MUCINEX 1200 MG PO (08:25)
[2024-01-01] MEDS: LIPITOR 10 MG PO (08:25)
[2024-01-01] MEDS: VITAMIN C 500 MG PO (08:25)
[2024-01-01] MEDS: ASPIR LOW (ENTERIC COATED) 81 MG PO (08:25)
[2024-01-01] MEDS: DELTASONE 40 MG PO (08:25)
[2024-01-01] MEDS: VITAMIN D3 (cholecalciferol) 50 MCG PO (08:25)
[2024-01-01] MEDS: PEPCID 20 MG PO (08:25)
[2024-01-01] MEDS: HEPARIN 5000 UNITS SC ×2 (08:28→15:37)
--- NOTE | 2024-01-01 09:12 | W.PN.PUL3 ---
Today's Communication / Plan
-
Doing well, back to baseline SOB
Home O2 set up
Can continue prednisone taper slowly with plan to stay on 10mg until seen as OP
OP Pulm FU with Dr Noriega in 2-3 weeks
Updated daughter extensively at bedside, all questions answered
Discharge planning per team
Assessment
-
63-year-old female with history of COPD, possible asthma, smoking history with recurrent flareups of COPD/asthma over the past 6 months requiring antibiotics/steroids, now presents with acute COPD exacerbation with diffuse wheezing and hypertensive
urgency. We are asked to help from pulmonary standpoint. Of note patient is an extremely poor historian
Acute COPD exacerbation
Bronchiectasis
Hypertensive urgency
Hyperglycemia
Questionable right lower lobe/right middle lobe infiltrate (my review)
Hx of ANCA vasculitis
Treated with Rituxan in the past last dose February 2019
Follows rheumatology
CANCA vasculitis, eosinophils per muscle biopsy for myositis
Conditions present prior to admission
History of hypertension
Hyperlipidemia
60+ pack-year history of smoking quit 2021
Plan/recommendations
Patient feels better.
Oxygen assessment noted: Up to 6 L supplemental oxygen with ambulation.
4 L at rest.
Cough and congestion.
Patient subjectively feels better.
Unable to produce phlegm.
Continue oxygen supplementation as above. New oxygen requirements are new for her.
Home O2 set up
-
Lung exam with minimal expiratory wheezing--improving
Continue prednisone 40 mg and decrease by 10 mg every 3-4 days for slow taper
Daughter notes that she had re-exac when off prednisone, we discussed staying on 10mg until seen as OP
.
Patient has a nebulizer machine at home
Recommend discharging on: Xopenex/ipratropium QID
Continue Pulmicort twice a day as well, to continue until seen in the office.
-
Had CT chest 10/12/2023 at [place]-reported resolution of right upper lobe atelectasis and biapical opacifications
Considering steroid responsive interstitial process ongoing
CT chest 12/28/2023-No lobar pneumonia, bronchiectatic changes noted
Continue mucus clearing devices
Maximize mucolytic's
Incentive spirometry, flutter, and vest therapy
Has not been able to produce a sputum.
Negative influenza
Continue doxycycline, complete total of 5 days. No infiltrates on CAT scan.
Neuro eval noted
No additional testing for now
Acute kidney injury noted creatinine up to 1.5. Management per primary team.
History of vasculitis
Urinalysis-no hematuria
No evidence for vasculitis in the lungs based on CT chest.
DVT prophylaxis-on subcu heparin
GI prophylaxis on steroids
Dr. Walker updated at the bedside 12/30/2023, updated daughter 12/31/2023.
Dr. Eisenberg, updated daughter at the bedside at length- called 12/29/2023, and left detailed update on voice mail
Outpatient pulmonary follow-up -
From the pulmonary perspective, patient will need supplemental oxygen.
Discharge planning per team
Subjective Data
-
Date of Service:
Date of Service: January 01, 2024
Chief Complaint: Pulmonary Follow Up and Dyspnea Follow Up
Subjective:
feeling back to baseline, on O2
daughter at bedside
Objective Data
Data Reviewed
Vital Signs / I&O / Oxygen:
Vital Signs
Temp Pulse Resp BP Pulse Ox
97.7 F 98 18 148/73 87
01/01/24 07:50 01/01/24 07:50 01/01/24 07:50 01/01/24 07:50 01/01/24 07:50
Intake and Output
12/31/23 01/01/24 01/02/24
06:59 06:59 06:59
Intake Total 1500 / 1500 1640 / 1640
Balance 1500 / 1500 1639 / 1640
SaO2 87
Nasal Cannula flow liters per 3
minute
Physical Exam
General: Respiratory Distress (n) and Comfortable
HEENT: Normocephalic and Anicteric
Cardiovascular: S1-S2, Regular Rhythm, Murmur (n), Rub (n), JVD (n) and Peripheral Edema (Trace)
Respiratory: Crackles (n), Rhonchi (bilateral with deep breathing/coughing), Non-Labored Respirations, Accessory Resp Muscle Use (n) and Stridor (n)
GI: Soft, Non Distended and Non Tender
Neurology: Awake, Alert, Oriented, AO x 3 and No Motor Deficits
Skin: Warm, Good Color, Cyanosis (n), Jaundice (n) and Rash (n)
Labs/Micro/Reports
Lab Data
01/01/24 05:17
01/01/24 05:17
--- NOTE | 2024-01-01 10:08 | W.PN.HOSP.TC ---
Addendum entered and electronically signed by Patrick Bowles MD 01/01/24 17:21:
Read, reviewed, and agree. See same day progress note for additional details. Time spent coordinating care, DC planning, review of DC plan of care with resident, transition of care, review of records in EMR, med rec, consults, notes, d/w
consultants, nursing, family, and CM 35 mins
Medically stable for discharge today. Pulmonary input noted. Discussed with daughter at bedside regarding discharge medications and follow-up plan.
Original Note:
Documented by User: Srini Shi MD, Resident 01/01/24 17:03
Today's Communication/Plan
-
Patient appears to be at her baseline and continues to show trends of improvement. Patient will be discharged with home oxygen. Coordinating with case management in regards to moving forward with her discharge planning. Patient will be discharged
on 40 mg of prednisone that she should taper down 10 mg every 4 days. Once patient is tapered down to 10 mg the patient should remain at 10 mg until seen by her oil well cable tool driller in the outpatient setting.
Assessment / Plan
Assessment / Plan
- Acute hypoxemic respiratory failure Secondary to recurrent asthma/COPD exacerbation
Flu A/B negative.
Barium swallow to evaluate aspiration pneumonia risk: No evidence of airway aspiration.
Continue nebulizer treatment/steroids/ipratropium/budesonide. Switched to doxycycline due to concerns of QT elongation, continue. Decadron tapered and switched to prednisone taper due to altered mental status
Incentive [place]/Acapella
Patient declined BiPAP
Appreciate pulm input
Wean O2 as tolerated
Home O2 eval: Resting RA sat 87%. 3 L nasal cannula 88 to 90%. Peak demand of 8 L for sats 85% on prolonged ambulation. Congested nonproductive cough noted throughout eval
Patient will be discharged with oxygen supplementation provided at home. Patient should continue her prednisone to 40 mg upon discharge and will decrease by 10 mg every 4 days for slow taper. Patient will possibly be discharged with
Xopenex/ipratropium 4 times daily
-Delirium: Resolved - Monitoring
On background of likely cognitive impairment/dementia
Likely multifactorial: Steroid versus hypoxia versus hospital stay. Unlikely ANCA vasculitis. No focal symptoms
Appreciate neuro and psych input.
Resolved, at baseline mental status with adjusted steroid dose and timing
- Essential hypertension: Monitoring
Hold losartan for increased creatinine 1.2 today
Continue prophylactic aspirin
Hydralazine 5 mg p.o. every 4 hours as needed added
Amlodipine 5 mg added nightly
-Acute kidney injury: Stable - Monitoring
Creatinine 1.2 today. Baseline 0.8
Possibly dehydration. Patient states she eats and drinks okay
Hold losartan
Reassess, follow BMP
- Hyperlipidemia: Stable
Continue statin
-Sinus tachycardia: Monitoring
Pulse 90s to 100s. Twelve-lead electrocardiogram showed sinus tachycardia, right atrial enlargement, inferior infarct with undetermined age.
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
Treated prior with Rituxan in the past - last dose was given February 2019
Follows with outpatient rheumatology
C-ANCA vasculitis, eosinophils per muscle biopsy for myositis
- Overweight: Monitoring
Patient's BMI is 27.9 which categorized the patient is overweight.
She has been counseled in regards to improved dietary habits and we will consider dietary consult.
Low TSH Level: TSH 0.20, free T4 1.12
Likely euthyroid sick. Repeat TSH in 3 weeks outpatient
DVT prophylaxis: subQ heparin
Full code
Regular diet
Anticipated Discharge: Today
Subjective/Interval History
-
Date of Service: January 01, 2024
Met with patient at the bedside. She states that she is doing much better and is happy and smiling in conversation. She hopes to go home soon and was seen socializing with her daughter at the bedside. She states that she feels like she can
breathe adequately on the oxygen settings that she is currently on and offers no other complaints.
Objective Data
-
Labs:
Laboratory Results
01/01/24
05:17
WBC 20.2 H
Hgb 11.9 L
Hct 34.5 L
Plt Count 383
Sodium 136
Potassium 4.8
Chloride 105
Carbon Dioxide 25
BUN 47 H
Creatinine 1.2 H
Glucose 104 H
Calcium 9.2
Vital Signs:
Vital Signs
Temp Pulse Resp BP Pulse Ox
97.7 F 98 18 148/73 90
01/01/24 07:50 01/01/24 07:50 01/01/24 07:50 01/01/24 07:50 01/01/24 09:50
I&O
12/31/23 01/01/24 01/02/24
06:59 06:59 06:59
Intake Total 1500 / 1500 1640 / 1640
Balance 1500 / 1500 1640 / 1640
Review of Systems
-
History Source: Patient
Constitutional: Reports No Symptoms
EENT: Reports No Symptoms Reported
Respiratory: Reports No Symptoms
Cardiac: Reports No Symptoms
Abdomen/GI: Reports No Symptoms
Breast: Reports No Symptoms
Genitourinary: Reports No Symptoms
Musculoskeletal: Reports No Symptoms
Skin: Reports No Symptoms
Neuro: Reports No Symptoms
Endocrine: Reports No Symptoms
Hematologic / Lymphatic: Reports No Symptoms
Allergy / Immunology: Reports No Symptoms
Physical Exam
-
General: Well Developed, Well Nourished, No Apparent Distress and Comfortable
HEENT: Normocephalic and Atraumatic
Respiratory: Wheezes
Cardiac: Regular Rhythm and S1/S2
Breast: Deferred by me
GI: Soft, Nontender, Nondistended and Normal Bowel Sounds
Rectal: Deferred by Provider
Genito-urinary: Deferred by me
Musculoskeletal: No Clubbing, No Cyanosis and No Edema
Skin: Warm and Dry
Neuro: Nonfocal/Grossly Intact

Documented by User: Patrick Bowles MD 01/01/24 17:20
Assessment / Plan
Assessment / Plan
- Acute hypoxemic respiratory failure Secondary to recurrent asthma/COPD exacerbation
Flu A/B negative.
Barium swallow to evaluate aspiration pneumonia risk: No evidence of airway aspiration.
Continue nebulizer treatment/steroids/ipratropium/budesonide. Switched to doxycycline due to concerns of QT elongation, continue. Decadron tapered and switched to prednisone taper due to altered mental status
Incentive [place]/Acapella
Patient declined BiPAP
Appreciate pulm input
Wean O2 as tolerated
Home O2 eval: Resting RA sat 87%. 3 L nasal cannula 88 to 90%. Peak demand of 8 L for sats 85% on prolonged ambulation. Congested nonproductive cough noted throughout eval
Patient will be discharged with oxygen supplementation provided at home. Patient should continue her prednisone to 40 mg upon discharge and will decrease by 10 mg every 4 days for slow taper. Patient will possibly be discharged with
Xopenex/ipratropium 4 times daily
-Delirium: Resolved - Monitoring
On background of likely cognitive impairment/dementia
Likely multifactorial: Steroid versus hypoxia versus hospital stay. Unlikely ANCA vasculitis. No focal symptoms
Appreciate neuro and psych input.
Resolved, at baseline mental status with adjusted steroid dose and timing
- Essential hypertension: Monitoring
CW losartan on discharge and follow Cr as OP
Continue prophylactic aspirin
Amlodipine 5 mg added nightly
-Acute kidney injury: Stable - Monitoring
Creatinine 1.2 today. Baseline 0.8
Possibly dehydration. Patient states she eats and drinks okay
Can resume losartan on dc
- Hyperlipidemia: Stable
Continue statin
-Sinus tachycardia: Monitoring
Pulse 90s to 100s. Twelve-lead electrocardiogram showed sinus tachycardia, right atrial enlargement, inferior infarct with undetermined age.
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
Treated prior with Rituxan in the past - last dose was given February 2019
Follows with outpatient rheumatology
C-ANCA vasculitis, eosinophils per muscle biopsy for myositis
- Overweight: Monitoring
Patient's BMI is 27.9 which categorized the patient is overweight.
She has been counseled in regards to improved dietary habits and we will consider dietary consult.
Low TSH Level: TSH 0.20, free T4 1.12
Likely euthyroid sick. Repeat TSH in 3 weeks outpatient
DVT prophylaxis: subQ heparin
Full code
Regular diet
--- NOTE | 2024-01-01 10:14 | CM ---
Addendum entered by Jennifer Julien RN 01/01/24 16:47:
Received call from [facility], they now are unable to accept any new patients. Call placed to [facility] clinicals faxed to Jamila. She will review and driver/refuse collector will be able to deliver portable O2 to hospital within two hours. Patient, daughter, and
RN updated.
Addendum entered by Jennifer Julien RN 01/01/24 10:41:
Referral for home O2 faxed to [facility] ([phone]). [facility] in [place] will follow the patient at discharge.
Plan: Discharge to home once home O2 has been arranged. [facility] will follow.
[facility] fax: [phone]
Original Note:
Reviewed the chart notes and spoke with the patient and daughter at the bedside. IMM signed and placed on the chart.
[2024-01-01 11:40] VITALS: BP 132/59
[2024-01-01 15:50] VITALS: BP 135/70
--- NOTE | 2024-01-01 18:01 | W.DS.TRANS ---
DC Summary - [place]
-
Discharge Instructions:
Discharge Diagnosis/Procedures Acute COPD exacerbation, essential hypertension,
hyperlipidemia,hx of C-ANCA Vasculitis
Diet Regular
Activity No restrictions
Driving Restrictions As prior to admission
Bathing Restrictions None
Instructions:
Stand-Alone Forms:
Changes to Home Medications: Yes
Discharge Medications:
DC Medications w/original date entered in [employer]
albuterol sulfate 90 mcg/actuation aerosol inhaler 2 puff inhalation R Q6HPRN PRN sob 12/25/23
ascorbic acid (vitamin C) 500 mg tablet (Vitamin C) 500 mg PO DAILY Supplement 12/25/23
aspirin 81 mg tablet,delayed release 81 mg PO DAILY Blood Clot Prevention/Tx 12/25/23
atorvastatin 10 mg tablet 10 mg PO DAILY High Cholesterol 12/25/23
calcium carbonate (Calcium 600) 600 mg PO DAILY Supplement 12/25/23
cholecalciferol (vitamin D3) 50 mcg (2,000 unit) tablet (Vitamin D3) 50 mcg PO DAILY Supplement 12/25/23
losartan 100 mg tablet 100 mg PO DAILY Blood Pressure 12/25/23
amlodipine 5 mg tablet 5 mg PO HS #30 tabs 01/01/24
budesonide 0.5 mg/2 mL suspension for nebulization 0.5 mg (2 mL) inhalation R BID Congestion #60 mL 01/01/24
guaifenesin 600 mg tablet, extended release 12 hr 1,200 mg (2 x 600 mg) PO Q12 #30 tabs 01/01/24
ipratropium bromide 0.02 % solution for inhalation 0.5 mg (2.5 mL) inhalation R QID Cough #75 mL 01/01/24
levalbuterol HCl 1.25 mg/3 mL solution for nebulization 1.25 mg (3 mL) inhalation R QID #75 mL 01/01/24
prednisone 20 mg tablet 40 mg (2 x 20 mg) PO DAILY Anti-inflammatory #30 tabs 01/01/24
Home Medication Changes
Medications added with dosage instructions attached:
Amlodipine
Budesonide
Guaifenesin
Ipratropium bromide
Levalbuterol
Prednisone
Pending Results: No
--- NOTE | 2024-01-01 18:06 | W.DCSUMMARY ---
Discharge Summary
Discharge Data
Date of Admission: 12/25/23
Date of Discharge: 01/01/24
-
Pending Results: No
Hospital Course
Patient is an 83-year-old female with a history of COPD and hypertension who presented to the emergency department for difficulty breathing. Patient reported symptoms starting the day before her presentation. In the emergency department, the
patient noted that she was having ongoing similar symptoms for the past several months prior to her presentation. In May she was treated for pneumonia and had improvement. However, again she had an infection in August which required a course
of steroids during treatment. She denied cough or fever. She stated that she was not on any home oxygen. Patient was unaware that she was being followed with any senior manufacturing supervisor but further 7 of her medical records that showed that she was being
followed by pulmonology here at [facility]. Patient smoked 1 pack of cigarettes for many years but she quit several decades ago. Patient is not a good historian and much of her medical history have been corroborated by her and her
daughter. Patient was noted to be hypoxic in the outpatient setting at around 84% after being seen by pulmonology on 12/24. Patient was admitted to [facility] for acute hypoxemic respiratory failure secondary to recurrent asthma/COPD
exacerbation.
Upon admission to the hospital the patient was managed for suspected COPD exacerbation and given antibiotic with nebulizer and ipratropium. The remainder of her home medications were continued for her hypertension and hyperlipidemia. A barium
swallow was ordered to rule out evidence of airway aspiration and this study concluded negative signs of airway aspiration. Amlodipine was added to the patient's medication regimen for persistent essential hypertension. Patient was offered BiPAP
but unfortunately was unable to adhere to treatment. Patient tested negative for influenza A and B. During her stay, the patient unfortunately became agitated and confused overnight. Much of this confusion/delirium may be attributed to
consequences of steroid use - adjustments were made to give steroids earlier in the day to avoid exacerbation of delirium and confusion in the evenings. After this adjustment, the patient was less confused and there was markedly less agitation.
Patient's daughter was frequently seen at the bedside to help the patient as she sometimes required positive reassurance and familiar face. As the patient's antibiotic course continued the patient's respiratory symptoms improved. Patient's
coughing, wheezing, and crackling, reduced greatly and the severity of her cough improved. Pulmonology consult recommended mucus clearing devices, maximizing mucolytics, incentive spirometry, flutter, and vest therapy to help clear her lungs.
Neurology consult followed the patient during her acute delirium and encouraged the adjustment in steroid timing, encouraged to regulate sleep schedule, and encouraged avoiding benzodiazepines. Psychiatry consult agreed with neurology's assessment.
As the patient's breathing improved the patient began to feel ready to be discharged and her family agreed. Plan discussed with family was to be discharged with home oxygen and to slowly taper down the patient's steroids to 10 mg from 40 until she
is able to be seen by her outpatient senior manufacturing supervisor.
The patient has reached maximal benefit from this hospital stay and is appropriate for discharge at the present time. There are no barriers impeding this patient from discharge at the present time. Patient has been encouraged to avoid taking her
steroids late in the evening and should instead take it earlier in the day to avoid evening confusion. The patient should start on 40 mg of prednisone and decrease it by 10 mg every 4 days until she reaches 10 mg. The patient should remain on 10
mg until she is seen by her outpatient senior manufacturing supervisor. The patient is appropriate for follow-up in the outpatient setting with her primary care provider and senior manufacturing supervisor.
Discharge Plan
-
Patient Disposition: Home (Routine Discharge)
Discharge Diagnosis/Procedures: Acute COPD exacerbation, essential hypertension, hyperlipidemia,hx of C-ANCA Vasculitis
Diet: Regular
Activity: No restrictions
Driving Restrictions: As prior to admission
Bathing Restrictions: None
Referrals:
Clement Noriega MD [Active] - in two weeks
(ok with [employer]
PFTs)
Aurelia Miramontes DO [Family Provider] - in one week
Additional Discharge Medication Instructions: Discharged to home with Home Oxygen
Prescriptions:
New
prednisone 20 mg Tablet
40 mg PO DAILY Qty: 30 0RF
Rx Instructions:
Continue 40 mg prednisone and decrease by 10 mg every 4 days for a slow taper. Continue on 10 mg until seen by senior manufacturing supervisor.
amlodipine 5 mg Tablet
5 mg PO HS Qty: 30 0RF
budesonide 0.5 mg/2 mL Suspension For Nebulization
0.5 mg inhalation R BID Qty: 60 0RF
guaifenesin 600 mg Tablet Extended Release 12hr
1,200 mg PO Q12 Qty: 30 0RF
ipratropium bromide 0.02 % Solution
0.5 mg inhalation R QID Qty: 75 0RF
levalbuterol HCl 1.25 mg/3 mL Solution For Nebulization
1.25 mg inhalation R QID Qty: 75 0RF
Continued
atorvastatin 10 mg Tablet
10 mg PO DAILY
aspirin 81 mg Tablet,Delayed Release (Dr/Ec)
81 mg PO DAILY
calcium carbonate [Calcium 600] 600 mg calcium (1,500 mg) Tablet
600 mg PO DAILY
ascorbic acid (vitamin C) [Vitamin C] 500 mg Tablet
500 mg PO DAILY
albuterol sulfate 90 mcg/actuation Hfa Aerosol Inhaler
2 puff INHALATION R Q6HPRN PRN (Reason: sob)
losartan 100 mg Tablet
100 mg PO DAILY
cholecalciferol (vitamin D3) [Vitamin D3] 50 mcg (2,000 unit) Tablet
50 mcg PO DAILY
Discontinued
albuterol sulfate 2.5 mg /3 mL (0.083 %) Solution For Nebulization
2.5 mg INHALATION R Q6HPRN PRN (Reason: sob)
Discharge Orders:
Discharge Patient (As Directed); Ordered 01/01/24
Ordered By: Srini Shi
Discharge Date and Time
Print Language: [place]
== END 2024-01-01 19:03 | disposition home health service (06) | DRG 190 ==
LOC: 2 NORTH 17:49
PROVIDERS: Student in an Organized Health Care Education/Training Program; ADMITTING PHYSICIAN Hospitalist; ATTENDING PHYSICIAN Internal Medicine; CONSULT PHYSICIAN Student in an Organized Health Care Education/Training Program; EMERGENCY PHYSICIAN Student in an Organized Health Care Education/Training Program; FAMILY PHYSICIAN Internal Medicine; OTHER PHYSICIAN Internal Medicine Critical Care Medicine; OTHER PHYSICIAN Psychiatry & Neurology Psychiatry
DX: J44.1 Chronic obstructive pulmonary disease with (acute) exacerbation (principal); G92.8 Other toxic encephalopathy; J96.01 Acute respiratory failure with hypoxia; J45.901 Unspecified asthma with (acute) exacerbation; N39.0 Urinary tract infection, site not specified; Z11.52 Encounter for screening for COVID-19; I10 Essential (primary) hypertension; I16.0 Hypertensive urgency; E78.5 Hyperlipidemia, unspecified; F17.210 Nicotine dependence, cigarettes, uncomplicated; I77.82 Antineutrophilic cytoplasmic antibody [ANCA] vasculitis; J47.9 Bronchiectasis, uncomplicated; F03.90 Unspecified dementia, unspecified severity, without behavioral disturbance, psychotic disturbance, mood disturbance, and anxiety; J40 Bronchitis, not specified as acute or chronic
CPT/HCPCS: 71045; 71250; 74230; 80048; 80053; 81003; 82607; 82746; 83735; 84439; 84443; 84484; 85025; 85027; 87502; 87811; 92611; 93005; 94640; 94669; 96374; 99285; J2358

== ENCOUNTER → 2024-03-27 14:11 | Outpatient (REF) | payer OTHER, SELFPAY | LOC: HWRAD 14:11 | PROVIDERS: ATTENDING PHYSICIAN Internal Medicine Critical Care Medicine | DX: R91.1 Solitary pulmonary nodule (principal) | CPT/HCPCS: 71250 ==

== ENCOUNTER → 2024-08-19 11:38 | Outpatient (REF) | payer OTHER, SELFPAY | LOC: HWRAD 11:38 | PROVIDERS: ATTENDING PHYSICIAN Internal Medicine Critical Care Medicine; FAMILY PHYSICIAN Internal Medicine | DX: R91.1 Solitary pulmonary nodule (principal) | CPT/HCPCS: 71250 ==